=== PATIENT | female | born 1950 | race Caucasian/White ===

== ENCOUNTER 2016-05-19 10:07 | Outpatient (CLI) | payer OTHER | END 2016-05-19 10:08 | disposition home or self-care (01) | DX: Z12.31 Encounter for screening mammogram for malignant neoplasm of breast (principal) ==

== ENCOUNTER 2016-05-28 10:54 | Outpatient (CLI) | payer OTHER | END 2016-05-28 10:55 | disposition home or self-care (01) | DX: E11.65 Type 2 diabetes mellitus with hyperglycemia (principal); F33.1 Major depressive disorder, recurrent, moderate ==

== ENCOUNTER 2016-09-11 13:33 | Outpatient (CLI) | payer OTHER ==
[2016-09-11 17:45] LABS: ALBUMIN/GLOBULIN RATIO 1.4 (1.0-2.2); BILIRUBIN,TOTAL 0.5 mg/dL (0.2-1.0); CALCIUM 10.3 mg/dL (8.5-10.3); POTASSIUM 3.7 mmol/L (3.5-5.0)
[2016-09-11 18:15] LABS: HEMOGLOBIN A1C 0.93 g/dL
== END 2016-09-11 13:34 | disposition home or self-care (01) ==
LOC: LAB.F 13:33
PROVIDERS: ATTEND Nurse Practitioner Family
DX: E11.65 Type 2 diabetes mellitus with hyperglycemia (principal); F33.9 Major depressive disorder, recurrent, unspecified; Z79.899 Other long term (current) drug therapy
CPT/HCPCS: 36415; 80053; 83036; 84443

== ENCOUNTER 2017-08-23 08:08 | Outpatient (CLI) | payer MEDICARE, OTHER ==
[2017-08-23 11:32] LABS: BASOPHILS # (AUTO) 0.1 10^3/uL (0.0-0.1); BASOPHILS % (AUTO) 0.8 %; EOSINOPHILS # (AUTO) 0.2 10^3/uL (0.0-0.7); EOSINOPHILS % (AUTO) 3.1 %; HGB - HEMOGLOBIN 11.5 g/dL (12.0-16.0); LYMPHOCYTES % (AUTO) 28.8 %; MEAN CORPUSCULAR HEMOGLOBIN 30.2 pg (27.0-31.0); MEAN CORPUSCULAR HGB CONC 34.6 g/dL (32.0-36.0); MEAN CORPUSCULAR VOLUME 87.4 fL (81.0-99.0); MEAN PLATELET VOLUME 6.8 fL (7.9-10.8); MONOCYTES # (AUTO) 0.7 10^3/uL (0.0-1.0); MONOCYTES % (AUTO) 9.6 %; NEUTROPHILS % (AUTO) 57.7 %; PLT - PLATELET COUNT 487 10^3/uL (130-450); RED BLOOD COUNT 3.81 10^6/uL (4.20-5.40); RED CELL DISTRIBUTION WIDTH 14.2 % (12.0-15.0); WHITE BLOOD COUNT 6.9 x10^3/uL (4.8-10.8)
== END 2017-08-23 08:09 | disposition home or self-care (01) ==
LOC: LAB.F 08:08
PROVIDERS: ATTEND Nurse Practitioner Family
DX: F33.1 Major depressive disorder, recurrent, moderate (principal)
CPT/HCPCS: 36415; 85025

== ENCOUNTER 2017-08-30 05:56 | Outpatient (CLI) | payer MEDICARE, OTHER ==
[2017-08-30 06:39] LABS: CREATININE,URINE 80.7 mg/dL; MICROALBUM/CREATININE RATIO,UR 6.2 ug/mg (<30.0); MICROALBUMIN,URINE 0.5 mg/dL (0-300.0)
[2017-08-30 06:42] LABS: HB2 TOTAL 12.9 g/dL; HEMOGLOBIN A1C 0.72 g/dL; HEMOGLOBIN A1C % 7.3 % (4.6-6.2)
[2017-08-30 06:43] LABS: CHOL/HDL RATIO 3.8 (<4.4); CHOLESTEROL 184 mg/dL; HDL CHOLESTEROL 49 mg/dL; LDL CHOLESTEROL,CALCULATED 107 mg/dL; LDL/HDL RATIO 2.2 (<4.4); VLDL CHOLESTEROL 28 mg/dL
== END 2017-08-30 05:57 | disposition home or self-care (01) ==
LOC: LAB 05:56
PROVIDERS: ATTEND Nurse Practitioner Family
DX: E11.65 Type 2 diabetes mellitus with hyperglycemia (principal)
CPT/HCPCS: 36415; 80061; 82043; 82570; 83036; 83721

== ENCOUNTER 2017-09-09 15:32 | Outpatient (CLI) | payer MEDICARE, OTHER ==
[2017-09-09 16:00] LABS: BASOPHILS # (AUTO) 0.1 10^3/uL (0.0-0.1); BASOPHILS % (AUTO) 0.8 %; EOSINOPHILS # (AUTO) 0.2 10^3/uL (0.0-0.7); EOSINOPHILS % (AUTO) 2.2 %; HGB - HEMOGLOBIN 11.5 g/dL (12.0-16.0); LYMPHOCYTES # (AUTO) 2.2 10^3/uL (1.5-3.5); LYMPHOCYTES % (AUTO) 29.5 %; MEAN CORPUSCULAR HEMOGLOBIN 29.9 pg (27.0-31.0); MEAN CORPUSCULAR HGB CONC 33.5 g/dL (32.0-36.0); MEAN CORPUSCULAR VOLUME 89.2 fL (81.0-99.0); MEAN PLATELET VOLUME 6.4 fL (7.9-10.8); MONOCYTES # (AUTO) 0.6 10^3/uL (0.0-1.0); MONOCYTES % (AUTO) 8.4 %; NEUTROPHILS # (AUTO) 4.5 10^3/uL (1.5-6.6); NEUTROPHILS % (AUTO) 59.1 %; PLT - PLATELET COUNT 627 10^3/uL (130-450); RED BLOOD COUNT 3.86 10^6/uL (4.20-5.40); RED CELL DISTRIBUTION WIDTH 14.5 % (12.0-15.0); WHITE BLOOD COUNT 7.5 x10^3/uL (4.8-10.8)
[2017-09-09 16:16] LABS: ALBUMIN 4.1 g/dL (3.2-5.5); ALBUMIN/GLOBULIN RATIO 1.1 (1.0-2.2); BILIRUBIN,TOTAL 0.4 mg/dL (0.2-1.0); CALCIUM 9.5 mg/dL (8.5-10.3); CREATININE 1.1 mg/dL (0.4-1.0); TOTAL PROTEIN 7.8 g/dL (6.7-8.2)
[2017-09-09 16:33] LABS: FERRITIN 40.3 ng/mL (11.0-306.8)
[2017-09-09 16:36] LABS: FOLATE 22.17 ng/mL (5.90 - >24.8)
== END 2017-09-09 15:33 | disposition home or self-care (01) ==
LOC: LAB 15:32
PROVIDERS: ATTEND Nurse Practitioner Family
DX: E11.9 Type 2 diabetes mellitus without complications (principal)
CPT/HCPCS: 36415; 80053; 82607; 82728; 82746; 83540; 84466; 85025

== ENCOUNTER 2017-09-21 09:00 | Outpatient (CLI) | payer MEDICARE, OTHER | END 2017-09-21 23:59 | LOC: LAB.R 09:00 | PROVIDERS: ATTEND Nurse Practitioner Family | DX: D64.9 Anemia, unspecified (principal) | CPT/HCPCS: 82270 ==

== ENCOUNTER 2017-10-01 13:32 | Outpatient (CLI) | payer MEDICARE, OTHER ==
[2017-10-01 13:47] LABS: BASOPHILS # (AUTO) 0.1 10^3/uL (0.0-0.1); BASOPHILS % (AUTO) 1.4 %; EOSINOPHILS # (AUTO) 0.2 10^3/uL (0.0-0.7); EOSINOPHILS % (AUTO) 2.4 %; HGB - HEMOGLOBIN 11.7 g/dL (12.0-16.0); LYMPHOCYTES # (AUTO) 2.2 10^3/uL (1.5-3.5); LYMPHOCYTES % (AUTO) 27.6 %; MEAN CORPUSCULAR HEMOGLOBIN 30.4 pg (27.0-31.0); MEAN CORPUSCULAR HGB CONC 34.9 g/dL (32.0-36.0); MEAN PLATELET VOLUME 6.4 fL (7.9-10.8); MONOCYTES # (AUTO) 0.7 10^3/uL (0.0-1.0); MONOCYTES % (AUTO) 8.2 %; NEUTROPHILS # (AUTO) 4.8 10^3/uL (1.5-6.6); NEUTROPHILS % (AUTO) 60.4 %; PLT - PLATELET COUNT 597 10^3/uL (130-450); RED BLOOD COUNT 3.84 10^6/uL (4.20-5.40); RED CELL DISTRIBUTION WIDTH 13.8 % (12.0-15.0)
== END 2017-10-01 13:33 | disposition home or self-care (01) ==
LOC: LAB 13:32
PROVIDERS: ATTEND Nurse Practitioner Family
DX: D64.9 Anemia, unspecified (principal)
CPT/HCPCS: 36415; 85025

== ENCOUNTER 2018-02-03 08:49 | Outpatient (CLI) | payer MEDICARE, OTHER ==
[2018-02-03 18:30] LABS: BASOPHILS % (AUTO) 0.6 %; EOSINOPHILS # (AUTO) 0.1 10^3/uL (0.0-0.7); EOSINOPHILS % (AUTO) 1.6 %; HGB - HEMOGLOBIN 11.8 g/dL (12.0-16.0); LYMPHOCYTES # (AUTO) 1.8 10^3/uL (1.5-3.5); LYMPHOCYTES % (AUTO) 23.7 %; MEAN CORPUSCULAR HEMOGLOBIN 29.7 pg (27.0-31.0); MEAN CORPUSCULAR HGB CONC 33.4 g/dL (32.0-36.0); MEAN PLATELET VOLUME 6.6 fL (7.9-10.8); MONOCYTES # (AUTO) 0.5 10^3/uL (0.0-1.0); MONOCYTES % (AUTO) 6.8 %; NEUTROPHILS # (AUTO) 5.2 10^3/uL (1.5-6.6); NEUTROPHILS % (AUTO) 67.3 %; PLT - PLATELET COUNT 616 10^3/uL (130-450); RED BLOOD COUNT 3.95 10^6/uL (4.20-5.40); RED CELL DISTRIBUTION WIDTH 14.2 % (12.0-15.0); WHITE BLOOD COUNT 7.7 x10^3/uL (4.8-10.8)
[2018-02-03 18:40] LABS: HB2 TOTAL 12.2 g/dL; HEMOGLOBIN A1C 0.67 g/dL; HEMOGLOBIN A1C % 7.2 % (4.6-6.2)
[2018-02-03 18:53] LABS: ALBUMIN 4.4 g/dL (3.2-5.5); ALBUMIN/GLOBULIN RATIO 1.5 (1.0-2.2); BILIRUBIN,TOTAL 0.7 mg/dL (0.2-1.0); CALCIUM 9.4 mg/dL (8.5-10.3); CREATININE 1.2 mg/dL (0.4-1.0); TOTAL PROTEIN 7.4 g/dL (6.7-8.2)
== END 2018-02-03 08:50 | disposition home or self-care (01) ==
LOC: LAB.F 08:49
PROVIDERS: ATTEND Nurse Practitioner Family
DX: D64.9 Anemia, unspecified (principal); E11.65 Type 2 diabetes mellitus with hyperglycemia
CPT/HCPCS: 36415; 80053; 82043; 83036; 85025

== ENCOUNTER 2018-02-18 08:47 | Outpatient (CLI) | payer MEDICARE, OTHER ==
[2018-02-18 17:55] LABS: BASOPHILS % (AUTO) 0.4 %; EOSINOPHILS # (AUTO) 0.1 10^3/uL (0.0-0.7); EOSINOPHILS % (AUTO) 1.6 %; HGB - HEMOGLOBIN 12.4 g/dL (12.0-16.0); LYMPHOCYTES # (AUTO) 1.9 10^3/uL (1.5-3.5); LYMPHOCYTES % (AUTO) 23.1 %; MEAN CORPUSCULAR HEMOGLOBIN 29.3 pg (27.0-31.0); MEAN CORPUSCULAR VOLUME 88.9 fL (81.0-99.0); MEAN PLATELET VOLUME 6.6 fL (7.9-10.8); MONOCYTES # (AUTO) 0.6 10^3/uL (0.0-1.0); MONOCYTES % (AUTO) 7.3 %; NEUTROPHILS # (AUTO) 5.6 10^3/uL (1.5-6.6); NEUTROPHILS % (AUTO) 67.6 %; PLT - PLATELET COUNT 620 10^3/uL (130-450); RED BLOOD COUNT 4.22 10^6/uL (4.20-5.40); RED CELL DISTRIBUTION WIDTH 14.2 % (12.0-15.0); WHITE BLOOD COUNT 8.3 x10^3/uL (4.8-10.8)
== END 2018-02-18 08:48 | disposition home or self-care (01) ==
LOC: LAB.F 08:47
PROVIDERS: ATTEND Nurse Practitioner Family
DX: E87.1 Hypo-osmolality and hyponatremia (principal); D64.9 Anemia, unspecified
CPT/HCPCS: 36415; 80048; 82043; 85025

== ENCOUNTER 2018-03-02 10:00 | Outpatient (CLI) | payer MEDICARE, OTHER ==
[2018-03-02 11:09] LABS: % IRON SATURATION 19 % (20-50); IRON 79 ug/dL (28-170); TOTAL IRON BINDING CAPACITY 409 ug/dL (250-450); TRANSFERRIN 292 mg/dL (192-382)
[2018-03-02 12:09] LABS: FREE T4 (FREE THYROXINE) 0.68 ng/dL (0.58-1.64)
[2018-03-02 12:13] LABS: TOTAL T3 0.73 ng/mL (0.87-1.78)
== END 2018-03-02 10:01 | disposition home or self-care (01) ==
LOC: LAB 10:00
PROVIDERS: ATTEND Physician Assistant Medical
DX: L65.9 Nonscarring hair loss, unspecified (principal)
CPT/HCPCS: 36415; 83540; 84439; 84466; 84480; 86376

== ENCOUNTER 2018-03-19 14:20 | Outpatient (CLI) | payer MEDICARE, OTHER ==
--- NOTE | 2018-03-21 12:59 | Ultrasound Report ---
Reason: RENAL INSUFFICIENCY Procedure Date: 03/19/2018 Accession Number: [id number] / [id number] Procedure: US - Retroperitoneal CPT Code: FULL RESULT: EXAM: RENAL ULTRASOUND EXAM DATE: 03/19/2018 02:42 PM. CLINICAL HISTORY: Renal insufficiency. COMPARISON: None. TECHNIQUE: Real-time scanning was performed with static images obtained. FINDINGS: Echogenicity of the renal cortices is mildly increased bilaterally. Right Kidney: 9.2 cm. Normal echotexture with no stones, contour-deforming masses, or hydronephrosis. Left Kidney: 10.4 cm. Normal echotexture with no stones, contour-deforming masses, or hydronephrosis. Bladder: Bilateral jets seen. The prevoid bladder volume was 149 cc. The postvoid bladder volume was 3 cc. Other: None. IMPRESSION: No obstruction with mildly echogenic cortices in keeping with medical renal disease. RADIA
== END 2018-03-19 14:21 | disposition home or self-care (01) ==
LOC: DI 14:20
PROVIDERS: ATTEND Nurse Practitioner Family
DX: N28.9 Disorder of kidney and ureter, unspecified (principal)
CPT/HCPCS: 76770

== ENCOUNTER 2018-04-04 10:41 | Outpatient (CLI) | payer MEDICARE, OTHER ==
[2018-04-04 11:16] LABS: BASOPHILS % (AUTO) 0.7 %; EOSINOPHILS # (AUTO) 0.3 10^3/uL (0.0-0.7); EOSINOPHILS % (AUTO) 4.8 %; HGB - HEMOGLOBIN 11.9 g/dL (12.0-16.0); LYMPHOCYTES # (AUTO) 1.9 10^3/uL (1.5-3.5); LYMPHOCYTES % (AUTO) 27.9 %; MEAN CORPUSCULAR HEMOGLOBIN 29.2 pg (27.0-31.0); MEAN CORPUSCULAR HGB CONC 34.6 g/dL (32.0-36.0); MEAN CORPUSCULAR VOLUME 84.5 fL (81.0-99.0); MEAN PLATELET VOLUME 5.7 fL (7.9-10.8); MONOCYTES # (AUTO) 0.6 10^3/uL (0.0-1.0); MONOCYTES % (AUTO) 8.5 %; NEUTROPHILS # (AUTO) 3.9 10^3/uL (1.5-6.6); NEUTROPHILS % (AUTO) 58.1 %; PLT - PLATELET COUNT 602 10^3/uL (130-450); RED BLOOD COUNT 4.08 10^6/uL (4.20-5.40); RED CELL DISTRIBUTION WIDTH 14.4 % (12.0-15.0); WHITE BLOOD COUNT 6.7 x10^3/uL (4.8-10.8)
[2018-04-04 11:25] LABS: CALCIUM 9.6 mg/dL (8.5-10.3); CREATININE 0.9 mg/dL (0.4-1.0)
[2018-04-04 11:48] LABS: CREATININE,URINE < 13.0 mg/dL
[2018-04-04 12:09] LABS: TOTAL PROTEIN,URINE TIMED < 6 mg/dL
== END 2018-04-04 10:42 | disposition home or self-care (01) ==
LOC: LAB 10:41
PROVIDERS: ATTEND Internal Medicine Nephrology
DX: N05.9 Unspecified nephritic syndrome with unspecified morphologic changes (principal); R80.9 Proteinuria, unspecified; D64.9 Anemia, unspecified
CPT/HCPCS: 36415; 80048; 82570; 84156; 85025

== ENCOUNTER 2018-05-09 10:01 | Outpatient (CLI) | payer MEDICARE, OTHER ==
[2018-05-09 10:37] LABS: CALCIUM 9.5 mg/dL (8.5-10.3); CREATININE 0.8 mg/dL (0.4-1.0)
== END 2018-05-09 10:02 | disposition home or self-care (01) ==
LOC: LAB 10:01
PROVIDERS: ATTEND Internal Medicine Nephrology
DX: N05.9 Unspecified nephritic syndrome with unspecified morphologic changes (principal)
CPT/HCPCS: 80048

== ENCOUNTER 2018-11-25 11:15 | Outpatient (CLI) | payer MEDICARE, OTHER | END 2018-11-25 11:16 | disposition home or self-care (01) | LOC: NS 11:15 | PROVIDERS: ATTEND Physician Assistant | DX: Z71.3 Dietary counseling and surveillance (principal); E11.9 Type 2 diabetes mellitus without complications | CPT/HCPCS: 97802 ==

== ENCOUNTER 2019-02-24 08:00 | Outpatient (CLI) | payer MEDICARE, OTHER ==
[2019-02-24 14:25] LABS: CREATININE,URINE 29.7 mg/dL; MICROALBUM/CREATININE RATIO,UR 10.1 ug/mg (<30.0); MICROALBUMIN,URINE 0.3 mg/dL (0-300.0)
[2019-02-24 15:44] LABS: HEMOGLOBIN A1C 0.69 g/dL; HEMOGLOBIN A1C % 7.4 % (4.6-6.2)
== END 2019-02-24 23:59 | disposition home or self-care (01) ==
LOC: LAB.WCP 08:00
PROVIDERS: ATTEND Physician Assistant
DX: E11.9 Type 2 diabetes mellitus without complications (principal)
CPT/HCPCS: 36415; 82043; 82570; 83036

== ENCOUNTER 2019-12-19 07:33 | Outpatient (CLI) | payer MEDICARE, OTHER ==
[2019-12-19 08:09] LABS: ALBUMIN 4.4 g/dL (3.2-5.5); ALBUMIN/GLOBULIN RATIO 1.3 (1.0-2.2); ALKALINE PHOSPHATASE 50 IU/L (42-121); ALT ALANINE AMINOTRANSFERASE 40 IU/L (10-60); AST ASPARTATE AMINOTRANSFERASE 28 IU/L (10-42); BILIRUBIN,TOTAL 0.8 mg/dL (0.2-1.0); BUN - BLOOD UREA NITROGEN 21 mg/dL (6-20); CALCIUM 9.8 mg/dL (8.5-10.3); CARBON DIOXIDE - CO2 24 mmol/L (21-32); CHLORIDE 101 mmol/L (101-111); CHOL/HDL RATIO 3.4 (<4.4); CHOLESTEROL 185 mg/dL; CREATININE 1.1 mg/dL (0.4-1.0); GLUCOSE 138 mg/dL (70-100); HDL CHOLESTEROL 55 mg/dL; LDL CHOLESTEROL,CALCULATED 109 mg/dL; SODIUM 138 mmol/L (135-145); TOTAL PROTEIN 7.9 g/dL (6.7-8.2); VLDL CHOLESTEROL 21 mg/dL
[2019-12-19 10:44] LABS: HEMOGLOBIN A1c% 8.3 % (4.27-6.07)
== END 2019-12-19 07:34 | disposition home or self-care (01) ==
LOC: LAB 07:33
PROVIDERS: ATTEND Physician Assistant
DX: E11.9 Type 2 diabetes mellitus without complications (principal)
CPT/HCPCS: 36415; 80053; 80061; 83036; 83721

== ENCOUNTER 2020-04-02 11:03 | Outpatient (CLI) | payer MEDICARE, OTHER ==
[2020-04-02 19:09] LABS: CREATININE,URINE 66.6 mg/dL
[2020-04-02 20:48] LABS: HEMOGLOBIN A1c% 6.4 % (4.27-6.07)
== END 2020-04-02 23:59 | disposition home or self-care (01) ==
LOC: LAB.WCP 11:03
PROVIDERS: ATTEND Physician Assistant
DX: E11.9 Type 2 diabetes mellitus without complications (principal)
CPT/HCPCS: 36415; 82043; 82570; 83036

== ENCOUNTER 2020-11-22 08:51 | Outpatient (CLI) | payer MEDICARE, OTHER ==
[2020-11-22 12:46] LABS: BASOPHILS % (AUTO) 0.6 %; EOSINOPHILS # (AUTO) 0.1 10^3/uL (0.0-0.7); EOSINOPHILS % (AUTO) 1.8 %; HCT - HEMATOCRIT 40.9 % (37.0-47.0); LYMPHOCYTES # (AUTO) 1.7 10^3/uL (1.5-3.5); LYMPHOCYTES % (AUTO) 24.6 %; MEAN CORPUSCULAR HEMOGLOBIN 29.1 pg (27.0-31.0); MEAN CORPUSCULAR HGB CONC 31.8 g/dL (32.0-36.0); MEAN CORPUSCULAR VOLUME 91.7 fL (81.0-99.0); MEAN PLATELET VOLUME 8.3 fL (7.9-10.8); MONOCYTES # (AUTO) 0.4 10^3/uL (0.0-1.0); MONOCYTES % (AUTO) 6.5 %; NEUTROPHILS # (AUTO) 4.5 10^3/uL (1.5-6.6); NEUTROPHILS % (AUTO) 66.2 %; PLT - PLATELET COUNT 556 10^3/uL (130-450); RED BLOOD COUNT 4.46 10^6/uL (4.20-5.40); RED CELL DISTRIBUTION WIDTH 13.5 % (12.0-15.0); WHITE BLOOD COUNT 6.7 x10^3/uL (4.8-10.8)
[2020-11-22 13:28] LABS: ALBUMIN 4.5 g/dL (3.2-5.5); ALBUMIN/GLOBULIN RATIO 1.5 (1.0-2.2); ALKALINE PHOSPHATASE 53 IU/L (42-121); ALT ALANINE AMINOTRANSFERASE 17 IU/L (10-60); AST ASPARTATE AMINOTRANSFERASE 17 IU/L (10-42); BILIRUBIN,TOTAL 0.7 mg/dL (0.2-1.0); BUN - BLOOD UREA NITROGEN 17 mg/dL (6-20); CALCIUM 9.8 mg/dL (8.5-10.3); CARBON DIOXIDE - CO2 27 mmol/L (21-32); CHLORIDE 102 mmol/L (101-111); CHOL/HDL RATIO 3.3 (<4.4); CHOLESTEROL 187 mg/dL; CREATININE 1.1 mg/dL (0.4-1.0); GFR - MDRD 49 (>89); GLUCOSE 117 mg/dL (70-100); HDL CHOLESTEROL 56 mg/dL; LDL CHOLESTEROL,CALCULATED 110 mg/dL; POTASSIUM 4.6 mmol/L (3.5-5.0); SODIUM 138 mmol/L (135-145); TOTAL PROTEIN 7.5 g/dL (6.7-8.2); TRIGLYCERIDES 107 mg/dL; VLDL CHOLESTEROL 21 mg/dL
[2020-11-22 13:56] LABS: ESTIMATED AVERAGE GLUCOSE 143 mg/dL (70-100); HEMOGLOBIN A1c% 6.6 % (4.27-6.07)
== END 2020-11-22 23:59 | disposition home or self-care (01) ==
LOC: LAB.WCP 08:51
PROVIDERS: ATTEND Family Medicine
DX: E11.9 Type 2 diabetes mellitus without complications (principal); D64.9 Anemia, unspecified
CPT/HCPCS: 36415; 80053; 80061; 82728; 83036; 83721; 85025

== ENCOUNTER 2021-05-19 09:30 | Outpatient (CLI) | payer MEDICARE, OTHER ==
--- NOTE | 2021-05-20 11:46 | Mammography Report ---
BILATERAL DIGITAL SCREENING MAMMOGRAM 3D/2D: 05/19/2021 CLINICAL: Routine screening. Comparison is made to exams dated: 05/19/2016 mammogram and 04/25/2014 mammogram - [facility]. There are scattered fibroglandular elements in both breasts. There is a biopsy clip in the left breast. No significant masses, calcifications, or other findings are seen in either breast. There has been no significant interval change. IMPRESSION: NEGATIVE There is no mammographic evidence of malignancy. A 1 year screening mammogram is recommended. This exam was interpreted at Station ID: [id number]. NOTE: For mammograms, a report in lay terms will be sent to the patient. Approximately 15% of breast malignancies will not be visualized mammographically. In the management of a palpable breast mass, a negative mammogram must not discourage biopsy of a clinically suspicious lesion. Electronically Signed By: Dena ulloa/davidrad:05/19/2021 10:06:44 ACR BI-RADS Category 1: Negative 3341F PARENCHYMAL PATTERN: (A) - The breast(s) demonstrate(s) scattered fibroglandular densities. BI-RADS CATEGORY: (1) - 1 RECOMMENDATION: (ANNUAL) - Recommend routine annual screening mammography. [id number] 1 year screening LATERALITY: (B)
== END 2021-05-19 09:31 | disposition home or self-care (01) ==
LOC: DI.N 09:30
DX: Z12.31 Encounter for screening mammogram for malignant neoplasm of breast (principal)

== ENCOUNTER 2021-09-29 07:14 | Outpatient (CLI) | payer MEDICARE, OTHER ==
[2021-09-29 07:27] LABS: BASOPHILS % (AUTO) 0.6 %; EOSINOPHILS # (AUTO) 0.2 10^3/uL (0.0-0.7); EOSINOPHILS % (AUTO) 3.2 %; HCT - HEMATOCRIT 38.3 % (37.0-47.0); HGB - HEMOGLOBIN 12.8 g/dL (12.0-16.0); LYMPHOCYTES # (AUTO) 1.7 10^3/uL (1.5-3.5); LYMPHOCYTES % (AUTO) 27.9 %; MEAN CORPUSCULAR HGB CONC 33.4 g/dL (32.0-36.0); MEAN CORPUSCULAR VOLUME 86.8 fL (81.0-99.0); MEAN PLATELET VOLUME 7.8 fL (7.9-10.8); MONOCYTES # (AUTO) 0.5 10^3/uL (0.0-1.0); MONOCYTES % (AUTO) 8.3 %; NEUTROPHILS # (AUTO) 3.7 10^3/uL (1.5-6.6); NEUTROPHILS % (AUTO) 59.8 %; PLT - PLATELET COUNT 423 10^3/uL (130-450); RED BLOOD COUNT 4.41 10^6/uL (4.20-5.40); RED CELL DISTRIBUTION WIDTH 13.7 % (12.0-15.0); WHITE BLOOD COUNT 6.2 x10^3/uL (4.8-10.8)
[2021-09-29 07:47] LABS: CREATININE,URINE 64.3 mg/dL; MICROALBUM/CREATININE RATIO,UR 24.9 ug/mg (<30.0); MICROALBUMIN,URINE 1.6 mg/dL (0-300.0)
[2021-09-29 07:48] LABS: ALBUMIN 4.5 g/dL (3.2-5.5); ALBUMIN/GLOBULIN RATIO 1.6 (1.0-2.2); ALKALINE PHOSPHATASE 55 IU/L (42-121); ALT ALANINE AMINOTRANSFERASE 19 IU/L (10-60); AST ASPARTATE AMINOTRANSFERASE 18 IU/L (10-42); BILIRUBIN,TOTAL 0.5 mg/dL (0.2-1.0); BUN - BLOOD UREA NITROGEN 17 mg/dL (6-20); CALCIUM 9.7 mg/dL (8.5-10.3); CARBON DIOXIDE - CO2 27 mmol/L (21-32); CHLORIDE 100 mmol/L (101-111); CHOL/HDL RATIO 4.9 (<4.4); CHOLESTEROL 284 mg/dL; CREATININE 0.9 mg/dL (0.4-1.0); GFR - MDRD 62 (>89); GLUCOSE 148 mg/dL (70-100); HDL CHOLESTEROL 58 mg/dL; LDL CHOLESTEROL,CALCULATED 164 mg/dL; LDL/HDL RATIO 2.8 (<4.4); POTASSIUM 4.5 mmol/L (3.5-5.0); SODIUM 135 mmol/L (135-145); TOTAL PROTEIN 7.4 g/dL (6.7-8.2); TRIGLYCERIDES 309 mg/dL; VLDL CHOLESTEROL 62 mg/dL
[2021-09-29 12:23] LABS: ESTIMATED AVERAGE GLUCOSE 163 mg/dL (70-100); HEMOGLOBIN A1c% 7.3 % (4.27-6.07)
== END 2021-09-29 07:15 | disposition home or self-care (01) ==
LOC: LAB 07:14
PROVIDERS: ATTEND Family Medicine
DX: E11.9 Type 2 diabetes mellitus without complications (principal)
CPT/HCPCS: 36415; 80053; 80061; 82043; 82570; 83036; 83721; 85025

== ENCOUNTER 2022-04-17 08:11 | Outpatient (CLI) | payer MEDICARE, OTHER ==
[2022-04-17 10:08] LABS: ESTIMATED AVERAGE GLUCOSE 160 mg/dL (70-100); HEMOGLOBIN A1c% 7.2 % (4.27-6.07)
== END 2022-04-17 08:12 | disposition home or self-care (01) ==
LOC: LAB 08:11
PROVIDERS: ATTEND Physician Assistant
DX: E11.9 Type 2 diabetes mellitus without complications (principal)
CPT/HCPCS: 36415; 83036

== ENCOUNTER 2022-07-14 07:27 | Outpatient (CLI) | payer MEDICARE, OTHER ==
[2022-07-14 11:56] LABS: ESTIMATED AVERAGE GLUCOSE 157 mg/dL (70-100); HEMOGLOBIN A1c% 7.1 % (4.27-6.07)
[2022-07-15 07:10] LABS: HSV 1 IGG TYPE SPEC <0.91 index (0.00-0.90); VARICELLA-ZOSTER AB IGG 2743 index (Immune >165)
[2022-07-15 14:09] LABS: VARICELLA-ZOSTER AB IGM <0.91 index (0.00-0.90)
== END 2022-07-14 07:28 | disposition home or self-care (01) ==
LOC: LAB 07:27
PROVIDERS: ATTEND Physician Assistant
DX: E11.9 Type 2 diabetes mellitus without complications (principal); B02.9 Zoster without complications
CPT/HCPCS: 36415; 83036; 86695; 86696; 86787

== ENCOUNTER 2022-11-04 07:41 | Outpatient (CLI) | payer MEDICARE, OTHER ==
[2022-11-04 08:01] LABS: BASOPHILS % (AUTO) 0.6 %; EOSINOPHILS # (AUTO) 0.1 10^3/uL (0.0-0.7); EOSINOPHILS % (AUTO) 1.8 %; HCT - HEMATOCRIT 38.4 % (37.0-47.0); HGB - HEMOGLOBIN 12.4 g/dL (12.0-16.0); LYMPHOCYTES # (AUTO) 1.7 10^3/uL (1.5-3.5); LYMPHOCYTES % (AUTO) 26.9 %; MEAN CORPUSCULAR HEMOGLOBIN 28.6 pg (27.0-31.0); MEAN CORPUSCULAR HGB CONC 32.3 g/dL (32.0-36.0); MEAN CORPUSCULAR VOLUME 88.5 fL (81.0-99.0); MEAN PLATELET VOLUME 7.6 fL (7.9-10.8); MONOCYTES # (AUTO) 0.4 10^3/uL (0.0-1.0); MONOCYTES % (AUTO) 6.8 %; NEUTROPHILS # (AUTO) 3.9 10^3/uL (1.5-6.6); NEUTROPHILS % (AUTO) 63.6 %; PLT - PLATELET COUNT 426 10^3/uL (130-450); RED BLOOD COUNT 4.34 10^6/uL (4.20-5.40); RED CELL DISTRIBUTION WIDTH 13.7 % (12.0-15.0); WHITE BLOOD COUNT 6.2 x10^3/uL (4.8-10.8)
[2022-11-04 08:13] LABS: CREATININE,URINE 58.5 mg/dL
[2022-11-04 08:15] LABS: MICROALBUMIN,URINE < 0.7 mg/dL
[2022-11-04 08:16] LABS: ALBUMIN 4.4 g/dL (3.2-5.5); ALBUMIN/GLOBULIN RATIO 1.7 (1.0-2.2); ALKALINE PHOSPHATASE 49 IU/L (42-121); ALT ALANINE AMINOTRANSFERASE 12 IU/L (10-60); AST ASPARTATE AMINOTRANSFERASE 13 IU/L (10-42); BILIRUBIN,TOTAL 0.4 mg/dL (0.2-1.0); BUN - BLOOD UREA NITROGEN 14 mg/dL (6-20); CALCIUM 9.8 mg/dL (8.5-10.3); CARBON DIOXIDE - CO2 30 mmol/L (21-32); CHLORIDE 101 mmol/L (101-111); CHOL/HDL RATIO 4.6 (<4.4); CHOLESTEROL 251 mg/dL; GFR - MDRD 55 (>89); GLUCOSE 122 mg/dL (74-104); HDL CHOLESTEROL 55 mg/dL; LDL CHOLESTEROL,CALCULATED 154 mg/dL; LDL/HDL RATIO 2.8 (<4.4); POTASSIUM 4.8 mmol/L (3.5-4.5); SODIUM 136 mmol/L (135-145); TRIGLYCERIDES 210 mg/dL (48-352); VLDL CHOLESTEROL 42 mg/dL
[2022-11-04 14:13] LABS: ESTIMATED AVERAGE GLUCOSE 137 mg/dL (70-100); HEMOGLOBIN A1c% 6.4 % (4.27-6.07)
== END 2022-11-04 07:42 | disposition home or self-care (01) ==
LOC: LAB 07:41
PROVIDERS: ATTEND Physician Assistant
DX: E11.9 Type 2 diabetes mellitus without complications (principal)
CPT/HCPCS: 36415; 80053; 80061; 82043; 82570; 83036; 83721; 85025

== ENCOUNTER 2023-05-20 09:17 | Outpatient (CLI) | payer MEDICARE ==
--- NOTE | 2023-05-21 09:45 | Mammography Report ---
BILATERAL DIGITAL SCREENING MAMMOGRAM 3D/2D WITH EXAGGERATED CC: 05/20/2023 CLINICAL: Routine screening. Comparison is made to exams dated: 05/19/2021 mammogram, 05/19/2016 mammogram, and 04/25/2014 mammogram - [facility]. There are scattered areas of fibroglandular density in both breasts (category b / 25%-50% glandular t issue). There is a biopsy clip in the left breast. No significant masses, calcifications, or other findings are seen in either breast. There has been no significant interval change. IMPRESSION: NEGATIVE There is no mammographic evidence of malignancy. A 1 year screening mammogram is recommended. Based on the Tyrer Cuzick model (a risk assessment model) the patient's lifetime risk is 3.8% and her 10 year risk is 2.6%. According to the ACR, ACS, and NCCN guidelines, an annual breast MRI exam kelsey g with mammogram is recommended if the patient's lifetime risk is 20% or greater. This exam was interpreted at Station ID: [id number]. NOTE: For mammograms, a report in lay terms will be sent to the patient. Approximately 15% of breast malignancies will not be visualized mammographically. In the management of a palpable breast mass, a negative mammogram must not discourage biopsy of a clinically suspicious lesion. Electronically Signed By: Jerry allen/starr:05/20/2023 11:38:43 letter sent: No_Letter ACR BI-RADS Category 1: Negative 3341F PARENCHYMAL PATTERN: (A) - The breast(s) demonstrate(s) scattered fibroglandular densities. BI-RADS CATEGORY: (1) - 1 Mammogram [id number] 1 year screening LATERALITY: (B)
== END 2023-05-20 09:18 | disposition home or self-care (01) ==
LOC: DI 09:17
DX: Z12.31 Encounter for screening mammogram for malignant neoplasm of breast (principal); R92.323 Mammographic fibroglandular density, bilateral breasts

== ENCOUNTER 2023-06-07 08:23 | Outpatient (CLI) | payer MEDICARE ==
[2023-06-07 08:34] LABS: BASOPHILS # (AUTO) 0.1 10^3/uL (0.0-0.1); BASOPHILS % (AUTO) 0.8 %; EOSINOPHILS # (AUTO) 0.2 10^3/uL (0.0-0.7); EOSINOPHILS % (AUTO) 2.9 %; HCT - HEMATOCRIT 41.5 % (37.0-47.0); HGB - HEMOGLOBIN 13.2 g/dL (12.0-16.0); LYMPHOCYTES # (AUTO) 1.5 10^3/uL (1.5-3.5); LYMPHOCYTES % (AUTO) 21.5 %; MEAN CORPUSCULAR HEMOGLOBIN 28.2 pg (27.0-31.0); MEAN CORPUSCULAR HGB CONC 31.8 g/dL (32.0-36.0); MEAN CORPUSCULAR VOLUME 88.7 fL (81.0-99.0); MEAN PLATELET VOLUME 7.9 fL (7.9-10.8); MONOCYTES # (AUTO) 0.5 10^3/uL (0.0-1.0); MONOCYTES % (AUTO) 7.4 %; NEUTROPHILS # (AUTO) 4.8 10^3/uL (1.5-6.6); PLT - PLATELET COUNT 557 10^3/uL (130-450); RED BLOOD COUNT 4.68 10^6/uL (4.20-5.40); RED CELL DISTRIBUTION WIDTH 14.1 % (12.0-15.0); WHITE BLOOD COUNT 7.2 x10^3/uL (4.8-10.8)
[2023-06-07 08:47] LABS: ALBUMIN 4.6 g/dL (3.2-5.5); ALBUMIN/GLOBULIN RATIO 1.8 (1.0-2.2); ALKALINE PHOSPHATASE 63 IU/L (42-121); ALT ALANINE AMINOTRANSFERASE 17 IU/L (10-60); AST ASPARTATE AMINOTRANSFERASE 14 IU/L (10-42); BILIRUBIN,TOTAL 0.4 mg/dL (0.2-1.0); BUN - BLOOD UREA NITROGEN 20 mg/dL (6-20); CARBON DIOXIDE - CO2 31 mmol/L (21-32); CHLORIDE 101 mmol/L (101-111); CHOLESTEROL 218 mg/dL; CREATININE 1.1 mg/dL (0.6-1.3); GFR - MDRD 49 (>89); GLUCOSE 145 mg/dL (74-104); HDL CHOLESTEROL 54 mg/dL; LDL CHOLESTEROL,CALCULATED 119 mg/dL; LDL/HDL RATIO 2.2 (<4.4); POTASSIUM 4.4 mmol/L (3.5-4.5); SODIUM 137 mmol/L (135-145); TOTAL PROTEIN 7.2 g/dL (6.4-8.9); TRIGLYCERIDES 225 mg/dL (48-352); VLDL CHOLESTEROL 45 mg/dL
[2023-06-07 11:27] LABS: ESTIMATED AVERAGE GLUCOSE 154 mg/dL (70-100)
== END 2023-06-07 08:24 | disposition home or self-care (01) ==
LOC: LAB 08:23
PROVIDERS: ATTEND Physician Assistant
DX: E11.9 Type 2 diabetes mellitus without complications (principal); E78.5 Hyperlipidemia, unspecified
CPT/HCPCS: 36415; 80053; 80061; 83036; 83721; 85025

== ENCOUNTER 2023-12-01 08:20 | Outpatient (CLI) | payer MEDICARE ==
[2023-12-01 08:42] LABS: BASOPHILS # (AUTO) 0.1 10^3/uL (0.0-0.1); BASOPHILS % (AUTO) 0.7 %; EOSINOPHILS # (AUTO) 0.1 10^3/uL (0.0-0.7); EOSINOPHILS % (AUTO) 1.9 %; HCT - HEMATOCRIT 41.3 % (37.0-47.0); HGB - HEMOGLOBIN 13.1 g/dL (12.0-16.0); LYMPHOCYTES # (AUTO) 1.6 10^3/uL (1.5-3.5); LYMPHOCYTES % (AUTO) 21.6 %; MEAN CORPUSCULAR HEMOGLOBIN 28.4 pg (27.0-31.0); MEAN CORPUSCULAR HGB CONC 31.7 g/dL (32.0-36.0); MEAN CORPUSCULAR VOLUME 89.6 fL (81.0-99.0); MEAN PLATELET VOLUME 7.7 fL (7.9-10.8); MONOCYTES # (AUTO) 0.5 10^3/uL (0.0-1.0); NEUTROPHILS # (AUTO) 5.1 10^3/uL (1.5-6.6); NEUTROPHILS % (AUTO) 68.4 %; PLT - PLATELET COUNT 502 10^3/uL (130-450); RED BLOOD COUNT 4.61 10^6/uL (4.20-5.40); RED CELL DISTRIBUTION WIDTH 14.5 % (12.0-15.0); WHITE BLOOD COUNT 7.4 x10^3/uL (4.8-10.8)
[2023-12-01 08:57] LABS: CREATININE,URINE 195.7 mg/dL; MICROALBUM/CREATININE RATIO,UR 21.5 ug/mg (<30.0); MICROALBUMIN,URINE 4.2 mg/dL
[2023-12-01 09:04] LABS: ALBUMIN 4.7 g/dL (3.2-5.5); ALKALINE PHOSPHATASE 68 IU/L (42-121); ALT ALANINE AMINOTRANSFERASE 14 IU/L (10-60); AST ASPARTATE AMINOTRANSFERASE 14 IU/L (10-42); BILIRUBIN,TOTAL 0.6 mg/dL (0.2-1.0); BUN - BLOOD UREA NITROGEN 16 mg/dL (6-20); CALCIUM 9.5 mg/dL (8.5-10.3); CARBON DIOXIDE - CO2 28 mmol/L (21-32); CHLORIDE 99 mmol/L (101-111); CHOL/HDL RATIO 4.3 (<4.4); CHOLESTEROL 269 mg/dL; GFR - MDRD 55 (>89); GLUCOSE 142 mg/dL (74-104); HDL CHOLESTEROL 62 mg/dL; LDL CHOLESTEROL,CALCULATED 153 mg/dL; LDL/HDL RATIO 2.5 (<4.4); POTASSIUM 4.3 mmol/L (3.5-4.5); SODIUM 135 mmol/L (135-145); TRIGLYCERIDES 272 mg/dL; VLDL CHOLESTEROL 54 mg/dL
[2023-12-01 11:51] LABS: ESTIMATED AVERAGE GLUCOSE 160 mg/dL (70-100); HEMOGLOBIN A1c% 7.2 % (4.27-6.07)
== END 2023-12-01 08:21 | disposition home or self-care (01) ==
LOC: LAB 08:20
PROVIDERS: ATTEND Physician Assistant
DX: E11.22 Type 2 diabetes mellitus with diabetic chronic kidney disease (principal); N18.31 Chronic kidney disease, stage 3a; D75.839 Thrombocytosis, unspecified
CPT/HCPCS: 36415; 80053; 80061; 82043; 82570; 83036; 83721; 85025

== ENCOUNTER 2025-01-21 07:51 | Inpatient (IN) ==
--- NOTE | 2025-01-21 07:58 | ED Physician Documentation ---
PD HPI DYSPNEA Stated complaint Stated Complaint: SOA Chief complaint Chief Complaint: Resp History obtained from History obtained from: Patient History of Present Illness Timing - onset: How many days ago (onset 10 days ago, Jan 11, while in [place]. abrupt onset fevers, cough, fatigue, nausea/vomiting. Has less intake still. No vomiting the past week. Increasing dyspnea and fatigue. ) Timing - onset during: Light activity and Exertion Timing - details: Gradual onset (with onset of flu-like symptoms 10 days ago, with dyspnea and cough continuing. Now with green sputum for 1 day. ) Inciting event(s): URI Improved by: Rest Worsened by: Exertion and Coughing Associated symptoms: Fever, Cough (now productive green sputum the past 1-2 days. ) and Wheezing; No Palpitations, Bilateral edema or Unilateral edema Similar symptoms before: Has not had sx before Meds/Allgy Home Medications Ambulatory Orders Medication Instructions Recorded Confirmed aspirin 81 mg chewable tablet 81 mg PO DAILY 03/13/14 01/21/25 (Lukas Chewable Low Dose Aspirin) fluoxetine 40 mg capsule (Prozac) 40 mg PO DAILY 01/1201/21/25 valacyclovir 500 mg tablet See Rx Instructions .Route 01/13/24 01/21/25 .COMPLEX #180 tabs pen needle, diabetic 31 gauge x 05/30/24 09/14/24 1/4" pen needle, diabetic 31 gauge x 05/30/24 09/14/24 5/16" (BD Ultra-Fine Short Pen Needle) amlodipine 2.5 mg tablet (Norvasc) 2.5 mg PO DAILY for blood pressure 06/30/24 01/21/25 #90 tabs atorvastatin 40 mg tablet 60 mg (1.5 x 40 mg) PO QPM # 135 06/30/24 01/21/25 tabs buspirone 10 mg tablet 10 mg PO TID for anxiety #27 0 tabs 06/30/24 01/21/25 dulaglutide 4.5 mg/0.5 mL 4.5 mg (0.5 mL) subcut QWEEK #6 mL 06/30/24 01/21/25 subcutaneous pen injector ([facility]) losartan 25 mg tablet 50 mg (2 x 25 mg) PO DAILY # 180 11/24/24 01/21/25 tabs metformin 500 mg tablet 1,000 mg (2 x 500 mg) PO BID #360 01/16/25 01/21/25 tabs Allergies Allergies Allergy/AdvReac Type Severity Reaction Status Date / Time nortriptyline Allergy Severe sensitivity Verified 01/21/25 08:00 mirtazapine Allergy Intermediate Sensitivity Verified 01/21/25 08:00 trazodone Allergy Mild Sensitivity Verified 01/21/25 08:00 venlafaxine HCl * (From Allergy Mild Sensitivity Verified 01/21/25 08:00 Effexor) codeine Allergy Nausea Verified 01/21/25 08:00 PET DANDER, DOG HAIR Allergy Severe Unknown Uncoded 01/21/25 08:00 [facility] Active Problems All Active Problems (Updated 01/21/25 @ 15:54 by WANG Rodrigues) Takotsubo cardiomyopathy (Acute) Heart failure (Chronic) Rhinovirus infection (Acute) Hypoxia (Acute) Pneumonia (Acute) Electrocardiogram showing T wave abnormalities (Acute) Dehydration (Acute) Flu-like symptoms (Acute) Dyspnea (Acute) IgM kappa monoclonal gammopathy (Acute) Screening for malignant neoplasm of colon (Chronic) Allergic rhinitis (Acute) Obesity (Acute) Genital herpes (Acute) Lichen sclerosus (Acute) Major depressive disorder, recurrent, moderate (Acute) Benign essential hypertension (Acute) Type 2 diabetes mellitus (Acute) Hyperlipidemia (Acute) Chronic kidney disease, stage 3a (Acute) Generalized anxiety disorder (Acute) Thrombocytosis (Acute) Postmenopausal status (Acute) Encounter for immunization (Acute) Anemia (Acute) Surgical History Surgical History (Updated 06/30/24 @ 14:36 by Ellie Damico PA-C) S/P total hysterectomy S/P cholecystectomy S/P tonsillectomy Social History Social History (Updated 01/21/25 @ 08:02 by Jorge Shaw, RN, BSN) Smoking Status: Former smoker If you are a former smoker, when did you quit? (Date/Year): 40 years Number of Years Smoked: 3 How many cigarettes a day do you smoke? (20 cigarettes=1 Pk): 20 Second hand tobacco smoke exposure: No Do you dip or chew tobacco?: No Do you vape?: No Patient requests smoking cessation consult: No Initiate information on smoking cessation: No Living arrangement: At home Living Condition: Alone Support Person: Yes How many days per week?: 4 Level: Independent Do you feel safe in your home environment?: Yes History of physical, verbal, emotional, or financial abuse?: No ETOH Use: None Substance Use: denies use Exam Exam Vital Signs: Vital Signs x48h Temp Pulse Resp BP Pulse Ox O2 Flow Rate 01/21/25 11:29 37.6 C 88 24 139/70 H 95 2 Constitutional normal general appearance, distress noted (mild) (more from feeling anxious about illness. Unlabored breathing. ) and average body habitus HENMT oral mucous membranes abnormal (dry) and oropharynx normal Neck/C-Spine supple and no meningeal signs Lymph no lymphadenopathy noted Respiratory breath sounds equal bilaterally (but somewhat decreased tidal volume. ), normal respiratory effort, auscultation abnormal (bronchial breath sounds), wheezing noted (scattered wheezes) and rales noted (base) (mild) Cardiovascular normal heart rate noted, regular rhythm noted, no murmur and no edema Gastrointestinal abdomen soft to palpation and nontender to palpation Extremities normal to palpation, no tenderness and full ROM Neurology speech normal Psychiatry mental status grossly normal, oriented x3 and affect abnormality noted (anxious) and (tearful) Skin skin color normal Results Vitals Vitals: Vital Signs - 24 hr 01/21/25 07:56 01/21/25 08:34 01/21/25 09:14 Temperature 36.3 C L Temperature Source Temporal Artery Scan Pulse Rate 92 86 93 Respiratory Rate 20 20 20 Blood Pressure 179/85 H 174/81 H O2 Saturation 95 93 Oxygen Delivery Method O2 Source Room air Room air Room air Oxygen Flow Rate If not protocol: Oxygen Flow, liters/minute Pain Intensity 0 1 01/21/25 09:50 01/21/25 09:52 01/21/25 10:00 Temperature Temperature Source Pulse Rate Respiratory Rate Blood Pressure O2 Saturation 88 L 94 Oxygen Delivery Method Nasal Cannula O2 Source Room air Nasal cannula Oxygen Flow Rate 2 If not protocol: Oxygen Flow, liters/minute 2 Pain Intensity 01/21/25 11:00 01/21/25 11:29 Temperature 37.6 C Temperature Source Temporal Artery Scan Pulse Rate 90 88 Respiratory Rate 19 24 Blood Pressure 139/70 H 139/70 H O2 Saturation 95 95 Oxygen Delivery Method O2 Source Nasal cannula Nasal cannula Oxygen Flow Rate If not protocol: Oxygen Flow, liters/minute 2 2 Pain Intensity 0 0 Oxygen O2 Source Nasal cannula Oxygen Flow Rate 2 EKG (time done) on arrival: EKG releavant findings:: EKG personally interpreted by author of this note. Relevant findings are: Rhythm: NSR Intervals: Normal AR QRS: RBBB Ischemia: T wave inversion (significantly inverted laterally, without ST elevations. ) Compare to prior EKG: Old EKG unavailable Labs Labs: Laboratory Tests 01/21/25 01/21/25 01/21/25 08:20 08:21 09:52 WBC 16.1 H RBC 3.95 L Hgb 11.0 L Hct 34.7 L MCV 87.8 MCH 27.8 MCHC 31.7 L RDW 13.2 Plt Count 615 H MPV 8.1 Neut # (Auto) 13.8 H Lymph # (Auto) 1.1 L Hidalgo # (Auto) 1.0 Eos # (Auto) 0.1 Baso # (Auto) 0.0 Absolute Nucleated RBC 0.00 Nucleated RBC % 0.0 Sodium 134 L Potassium 3.8 Chloride 99 L Carbon Dioxide 24 Anion Gap 11.0 BUN 18 Creatinine 0.9 Estimated GFR (MDRD) 62 L Glucose 233 H Calcium 9.0 Magnesium 1.8 Total Bilirubin 0.4 AST 9 L ALT 13 Alkaline Phosphatase 94 Troponin I High Sens 31.0 H* 34.5 H* B-Natriuretic Peptide 832 H Total Protein 6.7 Albumin 3.5 Globulin 3.2 Albumin/Globulin Ratio 1.1 Lipase 53 Nasal Adenovirus (PCR) NOT DETECTED Nasal B. parapertussis DNA (PCR) NOT DETECTED Nasal Coronavir 229E PCR NOT DETECTED Nasal Coronavir HKU1 PCR NOT DETECTED Nasal Coronavir NL63 PCR NOT DETECTED Nasal Coronavir OC43 PCR NOT DETECTED Nasal Enterovir/Rhinovir PCR DETECTED A Nasal Influenza B PCR NOT DETECTED Nasal Influenza A PCR NOT DETECTED Nasal Parainfluen 1 PCR NOT DETECTED Nasal Parainfluen 2 PCR NOT DETECTED Nasal Parainfluen 3 PCR NOT DETECTED Nasal Parainfluen 4 PCR NOT DETECTED Nasal RSV (PCR) NOT DETECTED Nasal B.pertussis DNA PCR NOT DETECTED Nasal C.pneumoniae (PCR) NOT DETECTED Alexy Human Metapneumo PCR NOT DETECTED Nasal M.pneumoniae (PCR) NOT DETECTED Nasal SARS-CoV-2 (PCR) NOT DETECTED Rads (name of study) chest xray: Relevant Findings:: Final report received and EMP independent interpretation of test (Diffuse interstitial changes consistent with either pneumonitis or edema with a small right pleural effusion. Normal heart size) Interpretation: EXAM: [id number] XR/CXR1VW ([id number]) PROCEDURE: XR Chest 1V INDICATIONS: cough and dyspnea TECHNIQUE: One view of the chest was acquired. COMPARISON: No prior chest x-ray for comparison FINDINGS: Moderate bilateral diffuse peribronchial thickening with patchy alveolar opacities more than expected for expiratory result. Bronchitis, viral infection, bronchopneumonia, asthma or other process should be considered. Follow-up suggested. Mild calcifications of the aortic arch mildly prominent esther, pulmonary vascular congestion and/or hilar lymph nodes No pneumothorax, no pleural effusion. Cardiopericardial silhouette within normal limits. IMPRESSION: Moderate peribronchial thickening and patchy opacities as discussed above. Prominent esther, pulmonary vascular congestion and/or hilar lymph nodes as discussed above Follow-up suggested. If symptoms persist or worsen, CT chest could be performed. Reviewed by: Brian Natarajan MD on 01/21/2025 8:58 AM PST ECHO: Relevant Findings:: Final report received Interpretation: EXAM: [id number] ECHO/COMP ([id number]) Version: 1 Study ID: [id number] [place] [address] Adult Echocardiogram Report Name: MINISTERIO FAIR Study Date: 01/21/2025, 10: 20 AM BP: 174 / 81 mmHg Patient Location: ED HR: 87 bpm : 1950 (MM/DD/YYYY) Gender: Female Height: 62 in Age: 74 Years Weight: 128 lb BSA: 1.58 m² Reason For Study: new onset dyspnea, flu-like symptoms History: No prervious study. No cardiac history of issues. Interpretation Summary The visual left ventricular ejection fraction is estimated at 40 to 45%. The base contracts well, with hypokinesis of distal segments & apex, suggetsive of stress induced cardiomyopathy. The right ventricular systolic function is normal. No concerning cardiac valve disease is noted. PD Medical Decision Making ED course Complexity details: reviewed results (Getting chemistry panel and CBC as well as BNP and troponin based on the initial chest x-ray looking like some edema in her EKG showing flipped T waves concerning for either failure or electrolyte imbalance. Awaiting results but giving fluids and albuterol treatment.), re- evaluated patient (She is having fatigue and dyspnea, with the initial ECG I felt was concerning for possible potassium abnormality, so started with some IV fluids in setting of poor PO intake for days. CXR showing pneumonitis/pneumonia, possible edema/effusion. SO decreased fluid bolus.), considered differential (Flulike illness for 10 days with under hydration and worsening cough and sputum. Mild basilar crackles. Some scattered wheezing. Initial chest x-ray looks like either pneumonitis or pulmonary edema with a small right effusion. EKG showing significant flipped T waves laterally. No ST elevations.), d/w patient and d/w work and family life consultant (Hospitalist Dr. Arreaga, who feels pt is appropriate for our hospital, and will see pt in the ED. ) Reviewed Lab Results: Initial blood test back actually are better than I expected with regard to the chemistry panel. Creatinine 0.9 with a GFR of 61. Potassium is normal as is sodium. Her CBC showed a white count of 16,000 with a hemoglobin of 11 and hematocrit of 35. This hemoglobin is slightly lower than the most recent from September 2011 0.3. Glucose was 233 and her anion gap was normal at 11. Magnesium 1.8 potassium 3.8. Her heart indicators however showed a slightly elevated troponin of 31 and a BNP of 832. We are obtaining an echocardiogram to to help distinguish a cardiomyopathy from a viral illness versus more of a ischemic affect. In the short-term we will see if there is a abrupt rise occurring of the troponin and get a repeat 1 at 1 to 2 hours. ED course: CXR pneumonia vs. edema vs. pneumonitis. 88% on RA. Oxygen started with good response. Unable to tell degree of failure and consider viral cardiomyopathy. Able to get ECHO and this was helpful in guidance, with moderate decrease in EF of 40% but not severe. Some apex hypokinesis, but not general LV. And heart size not enlarged. No not obvious severe carditis/cardiomyopathy, and could be able to treat at our facility. Critical Care Time(min): 50 Time Includes: Direct patient care, Reassess patient, Document care and Medical consult Data interpretation: Labs, Pulse ox and CXR Procedures excluded from critical care time: EKG Discharge Plan Discharge Patient Disposition: 66 [facility] DC/Xfer Condition: Stable Clinical Impression: Pneumonia, Dyspnea, Flu-like symptoms, Dehydration, Electrocardiogram showing T wave abnormalities, Hypoxia, Rhinovirus infection, Heart failure Interventions: ED Admission Assessment Last Done: 01/21/25 11:50 Vitals documented within 30 minutes of discharge?: Yes
[2025-01-21 08:27] LABS: HCT - HEMATOCRIT 34.7 % (37.0-47.0); HGB - HEMOGLOBIN 11.0 g/dL (12.0-16.0); MEAN PLATELET VOLUME 8.1 fL (7.9-10.8); NRBC ABSOLUTE COUNT (AUTO) 0.00 x10^3/uL; NUCLEATED RED BLOOD CELLS AUTO 0.0 /100WBC; PLT - PLATELET COUNT 615 10^3/uL (130-450); RED CELL DISTRIBUTION WIDTH 13.2 % (12.0-15.0)
[2025-01-21] MEDS: SODIUM CHLORIDE 0.9% 1,000 ML IV STA ×2 (08:31→09:59)
[2025-01-21] MEDS: ALBUTEROL NEB 2.5 MG/3 ML INH STA (08:32)
[2025-01-21 08:43] LABS: ALT ALANINE AMINOTRANSFERASE 13.0 IU/L (10-60); AST ASPARTATE AMINOTRANSFERASE 9.0 IU/L (10-42); BUN - BLOOD UREA NITROGEN 18.0 mg/dL (6-20); CARBON DIOXIDE - CO2 24.0 mmol/L (21-32); CREATININE 0.9 mg/dL (0.6-1.3); GFR - MDRD 62.0 (>89)
--- NOTE | 2025-01-21 09:01 | XRAY Report ---
PROCEDURE: XR Chest 1V INDICATIONS: cough and dyspnea TECHNIQUE: One view of the chest was acquired. COMPARISON: No prior chest x-ray for comparison FINDINGS: Moderate bilateral diffuse peribronchial thickening with patchy alveolar opacities more than expected for expiratory result. Bronchitis, viral infection, bronchopneumonia, asthma or other process should be considered. Follow-up suggested. Mild calcifications of the aortic arch mildly prominent esther, pulmonary vascular congestion and/or hilar lymph nodes No pneumothorax, no pleural effusion. Cardiopericardial silhouette within normal limits. IMPRESSION: Moderate peribronchial thickening and patchy opacities as discussed above. Prominent esther, pulmonary vascular congestion and/or hilar lymph nodes as discussed above Follow-up suggested. If symptoms persist or worsen, CT chest could be performed. Reviewed by: Brian Natarajan MD on 01/21/2025 8:58 AM PST Approved by: Brian Natarajan MD on 01/21/2025 8:58 AM PST Station ID: [id number]
[2025-01-21] MEDS: LORazepam 2 MG/ML VIAL IVP STA (09:11)
[2025-01-21 09:32] LABS: B. PARAPERTUSSIS- RESP PCR PAN NOT DETECTED; B. PERTUSSIS- RESP PCR PANEL NOT DETECTED; C. PNEUMONIAE- RESP PCR PANEL NOT DETECTED; CORONAVIRUS 229E-RESP PCR NOT DETECTED; CORONAVIRUS HKU1-RESP PCR NOT DETECTED; CORONAVIRUS NL63-RESP PCR NOT DETECTED; CORONAVIRUS OC43-RESP PCR NOT DETECTED; HUMAN METAPNEUMOVIRUS NOT DETECTED; INFLUENZA A- RESP PCR PANEL NOT DETECTED; INFLUENZA B - RESP PCR PANEL NOT DETECTED; M. PNEUMONIAE- RESP PCR PANEL NOT DETECTED; PARAINFLUENZA VIRUS 1 NOT DETECTED; PARAINFLUENZA VIRUS 2 NOT DETECTED; PARAINFLUENZA VIRUS 4 NOT DETECTED; RHINOVIRUS/ENTEROVIRUS DETECTED; RSV- RESP PCR PANEL NOT DETECTED; SARS-CoV-2 -RESP PCR PANEL NOT DETECTED
[2025-01-21] MEDS: AMPICILLIN/SULBACTAM 1.5 GM in SODIUM CHLORIDE 0.9% MINIBAG 100 ML IV STA (09:57)
[2025-01-21] MEDS: CLOPIDOGREL 75 MG TABLET PO STA (10:23)
[2025-01-21] MEDS: FUROSEMIDE 20 MG/2 ML VIAL IVP STA (10:23)
[2025-01-21] MEDS: ASPIRIN CHEW 81 MG TABLET PO STA (10:23)
[2025-01-21] MEDS ORDERED: oxyCODONE 5 MG TABLET PO PRN (11:28)
[2025-01-21] MEDS ORDERED: ONDANSETRON ODT 4 MG TABLET TL PRN (11:28)
[2025-01-21] MEDS ORDERED: SODIUM CHLORIDE FLUSH 0.9% 10 ML SYRINGE IVP PRN (11:28)
[2025-01-21] MEDS ORDERED: IPRATROPIUM/ALBUTEROL 3 ML NEB INH PRN (11:28)
[2025-01-21] MEDS ORDERED: ACETAMINOPHEN 325 MG TABLET PO PRN (11:28)
--- NOTE | 2025-01-21 11:35 | ECHO Report ---
Version: 1 Study ID: [id number] [id number] Adult Echocardiogram Report Name: MINISTERIO FAIR Study Date: 01/21/2025, 10: 20 AM BP: 174 / 81 mmHg Patient Location: ED HR: 87 bpm : 1950 (MM/DD/YYYY) Gender: Female Height: 62 in Age: 74 Years Weight: 128 lb BSA: 1.58 m² Reason For Study: new onset dyspnea, flu-like symptoms History: No prervious study. No cardiac history of issues. Interpretation Summary The visual left ventricular ejection fraction is estimated at 40 to 45%. The base contracts well, with hypokinesis of distal segments & apex, suggetsive of stress induced cardiomyopathy. The right ventricular systolic function is normal. No concerning cardiac valve disease is noted. Left Ventricle: The left ventricle is normal in size. No thrombus seen in the left ventricle. The visual left ventricular ejection fraction is estimated at 40 to 45%. Biplane calculation of 38%. The base contracts well, with hypokinesis of distal segments & apex, suggetsive of stress induced cardiomyopathy. The left ventricular diastolic pattern is indeterminate. Right Ventricle: The right ventricle is normal size. The right ventricular systolic function is normal. TAPSE is consistent with normal right ventricular function. The tricuspid annular plane systolic excursion (TAPSE) measurement is 2.0 cm. Aortic Valve: The aortic valve is moderately calcified. The aortic valve is trileaflet. No hemodynamically significant valvular aortic stenosis. No aortic regurgitation is present. Mitral Valve: The mitral valve leaflets are mildly calcified. Mild mitral annular calcification is present. No evidence of mitral stenosis is seen. There is trace mitral regurgitation. Tricuspid Valve: The tricuspid valve is normal in structure and function. There is no tricuspid stenosis. Trace tricuspid regurgitation present. Pulmonic Valve: The pulmonic valve is normal in structure and function. There is no pulmonic valvular stenosis. Trace pulmonic valvular regurgitation is present. Left Atrium: The left atrial size is normal. Right Atrium: Right atrial notching from Pericardial effusion. The inferior vena cava appears normal. Atrial Septum: The interatrial septum appears normal, without evidence of shunt by 2D imaging and color Doppler. Aorta: The ascending aorta is normal in size. The transverse arch is normal in size. The sinuses of Valsalva are normal in size. Pulmonary Artery: The pulmonary artery is normal size. Pulmonary artery systolic pressure could not be estimated due to an insufficient tricuspid regurgitant jet. Inferior vena cava dynamics indicate normal right atrial pressures. Pericardium/Pleural Space: A trace pericardial effusion is present. Left Ventricle IVSd: 0.85 cm LVIDd: 4.7 cm LVPWd: 0.89 cm LVIDs: 2.9 cm EDV(MOD-sp4): 53.9 ml LVLd ap4: 7.7 cm ESV(MOD-sp4): 26.9 ml ESV(sp4-el): 45.2 ml LVLs ap4: 7.0 cm EDV(MOD-sp2): 43.7 ml ESV(MOD-sp2): 20.4 ml Right Ventricle TAPSE: 2.04 cm RV S Dm: 12.3 cm/sec Atria LA dimension: 4.4 cm LAV(MOD-sp4): 46.0 ml LAV(MOD-sp2): 44.6 ml Diastolic Function MV dec time: 0.15 sec MV E max dm: 114.3 cm/sec MV A max dm: 117.3 cm/sec Aortic Valve LVOT diam: 2.05 cm LV V1 mean P.8 mmHg LV V1 mean: 88.7 cm/sec LV V1 VTI: 26.7 cm Ao V2 VTI: 28.7 cm Ao mean P.8 mmHg Ao V2 mean: 111.6 cm/sec LV V1 max: 145.1 cm/sec LV V1 max P.4 mmHg Ao max P.7 mmHg Ao V2 max: 163.9 cm/sec Mitral Valve MV max P.5 mmHg MV V2 max: 127.5 cm/sec MV mean P.7 mmHg MV V2 mean: 92.7 cm/sec MV V2 VTI: 31.7 cm Aorta Ao root diam: 3.3 cm MMode/2D Measurements & Calculations Ao root diam: 3.3 cm BMI: 23.4 kilograms/m² BSA([facility]): 1.60 m² EDV(MOD-sp2): 43.7 ml EDV(MOD-sp4): 53.9 ml ESV(MOD-sp2): 20.4 ml ESV(MOD-sp4): 26.9 ml ESV(sp4-el): 45.2 ml IVSd: 0.85 cm LA A4C-A/L: 15.3 cm² LA dimension: 4.4 cm LA ESV-A/L: 43.5 ml LA Vol Index: 55.8 ml/m² LAV(MOD-sp2): 44.6 ml LAV(MOD-sp4): 46.0 ml LVIDd: 4.7 cm LVIDs: 2.9 cm LVLd ap4: 7.7 cm LVLs ap4: 7.0 cm LVOT diam: 2.05 cm LVPWd: 0.89 cm RA A4Cs: 12.0 cm² TAPSE: 2.04 cm Doppler Measurements & Calculations Ao max P.7 mmHg Ao mean P.8 mmHg Ao V2 max: 163.9 cm/sec Ao V2 mean: 111.6 cm/sec Ao V2 VTI: 28.7 cm Lat E/e': 12.4 LV V1 max: 145.1 cm/sec LV V1 max P.4 mmHg LV V1 mean: 88.7 cm/sec LV V1 mean P.8 mmHg LV V1 VTI: 26.7 cm Med E/e': 16.2 MV A max dm: 117.3 cm/sec MV dec time: 0.15 sec MV DVI-pr: 0.97 MV E max dm: 114.3 cm/sec MV max P.5 mmHg MV mean P.7 mmHg MV V2 max: 127.5 cm/sec MV V2 mean: 92.7 cm/sec MV V2 VTI: 31.7 cm PA max P.2 mmHg PA V2 max: 113.7 cm/sec RV S Dm: 12.3 cm/sec Other Measurements & Calculations Ao root area: 8.4 cm² KATHY(I,D): 3.1 cm² KATHY(V,D): 2.9 cm² EDV(Teich): 101.0 ml EF(MOD-sp2): 53.3 % EF(MOD-sp4): 50.0 % EF(sp-el): 57.2 % EF(Teich): 68.1 % ESV(Teich): 32.2 ml FS: 37.9 % LVOT area: 3.3 cm² MV E/A: 0.97 MVA(VTI): 2.8 cm² SV(LVOT): 88.2 ml SV(MOD-sp4): 26.9 ml MD Rula Potter 01/21/2025, 11: 35 AM Ordering Physician: Andrzej Gaston Referring Physician: Andrzej Gaston Performed By: PARK
--- NOTE | 2025-01-21 11:38 | HISTORY & PHYSICAL EXAMINATION ---
Chief Complaint Chief Complaint Chief Complaint: shortness of breath History of Present Illness Admitted From Admitted From:: home History Obtained From Records Reviewed: PCP notes History obtained from: Patient History of Present Illness HPI Comment/Other: Presents to the ED with a 10 day hx of acute respiratory symptoms, worsening with GARCIA, SOB. not able to tolerate standing at the kitchen sink and doing her dishes. She realized last night that she needed to seek care. This AM she had an episode of coughing up green sputum. 2 days ago she flew from [place] to here and had a very long day. At that point she had been sick for about a week with this upper respiratory virus. She has been running subjective fevers she has had a very poor appetite. Since she has been in the emergency department she has gotten a stat echocardiogram, read pending, she has had an EKG showing flipped T waves, she has had a DuoNeb treatment which has made her breathing feel much better. She has not been having any lower extremity edema. She has not been having any paroxysmal nocturnal dyspnea but she has been having increased dyspnea on exertion. Over the last year she has had increasing amount of life stress with a in the family. She has had a strained relationship with her son and no longer speaks with him, and has been a for 6 years. She also moved her living arrangements about 6 months ago which has also been stressful although this overall is a positive experience for her She lives alone in a chcf community. Her daughter Alicia estevez who lives in [place] is her power of fire hydrant mechanic. She does not have a POLST. She wishes for DO NOT RESUSCITATE CODE STATUS. Open to completing POLST, but not today Meds/Allgy Home Medications Ambulatory Orders Medication Instructions Recorded Confirmed aspirin 81 mg chewable tablet 81 mg PO DAILY 03/13/14 01/21/25 (Lukas Chewable Low Dose Aspirin) fluoxetine 40 mg capsule (Prozac) 40 mg PO DAILY 01/1201/21/25 valacyclovir 500 mg tablet See Rx Instructions .Route 01/13/24 01/21/25 .COMPLEX #180 tabs pen needle, diabetic 31 gauge x 05/30/24 09/14/24 1/4" pen needle, diabetic 31 gauge x 05/30/24 09/14/24 5/16" (BD Ultra-Fine Short Pen Needle) amlodipine 2.5 mg tablet (Norvasc) 2.5 mg PO DAILY for blood pressure 06/30/24 01/21/25 #90 tabs atorvastatin 40 mg tablet 60 mg (1.5 x 40 mg) PO QPM # 135 06/30/24 01/21/25 tabs buspirone 10 mg tablet 10 mg PO TID for anxiety #27 0 tabs 06/30/24 01/21/25 dulaglutide 4.5 mg/0.5 mL 4.5 mg (0.5 mL) subcut QWEEK #6 mL 06/30/24 01/21/25 subcutaneous pen injector (Trulicity) losartan 25 mg tablet 50 mg (2 x 25 mg) PO DAILY # 180 11/24/24 01/21/25 tabs metformin 500 mg tablet 1,000 mg (2 x 500 mg) PO BID #360 01/16/25 01/21/25 tabs Allergies Allergies Allergy/AdvReac Type Severity Reaction Status Date / Time nortriptyline Allergy Severe sensitivity Verified 01/21/25 08:00 mirtazapine Allergy Intermediate Sensitivity Verified 01/21/25 08:00 trazodone Allergy Mild Sensitivity Verified 01/21/25 08:00 venlafaxine HCl * (From Allergy Mild Sensitivity Verified 01/21/25 08:00 Effexor) codeine Allergy Nausea Verified 01/21/25 08:00 PET DANDER, DOG HAIR Allergy Severe Unknown Uncoded 01/21/25 08:00 [facility] Active Problems All Active Problems (Updated 01/21/25 @ 15:54 by WANG Rodrigues) Takotsubo cardiomyopathy (Acute) Heart failure (Chronic) Rhinovirus infection (Acute) Hypoxia (Acute) Pneumonia (Acute) Electrocardiogram showing T wave abnormalities (Acute) Dehydration (Acute) Flu-like symptoms (Acute) Dyspnea (Acute) IgM kappa monoclonal gammopathy (Acute) Screening for malignant neoplasm of colon (Chronic) Allergic rhinitis (Acute) Obesity (Acute) Genital herpes (Acute) Lichen sclerosus (Acute) Major depressive disorder, recurrent, moderate (Acute) Benign essential hypertension (Acute) Type 2 diabetes mellitus (Acute) Hyperlipidemia (Acute) Chronic kidney disease, stage 3a (Acute) Generalized anxiety disorder (Acute) Thrombocytosis (Acute) Postmenopausal status (Acute) Encounter for immunization (Acute) Anemia (Acute) Surgical History Surgical History (Updated 06/30/24 @ 14:36 by Ellie Damico PA-C) S/P total hysterectomy S/P cholecystectomy S/P tonsillectomy Social History Social History (Updated 01/21/25 @ 08:02 by Jorge Shaw, RN, BSN) Smoking Status: Former smoker If you are a former smoker, when did you quit? (Date/Year): 40 years Number of Years Smoked: 3 How many cigarettes a day do you smoke? (20 cigarettes=1 Pk): 20 Second hand tobacco smoke exposure: No Do you dip or chew tobacco?: No Do you vape?: No Patient requests smoking cessation consult: No Initiate information on smoking cessation: No Living arrangement: At home Living Condition: Alone Support Person: Yes How many days per week?: 4 Level: Independent Do you feel safe in your home environment?: Yes History of physical, verbal, emotional, or financial abuse?: No ETOH Use: None Substance Use: denies use Exam Exam Vital Signs: Vital Signs x48h Temp Pulse Pulse Resp BP BP Pulse Ox 01/21/25 16:54 36.6 C 74 20 120/67 93 01/21/25 12:10 18 95 01/21/25 12:01 37.1 C 84 18 121/64 89 L 01/21/25 11:29 37.6 C 88 24 139/70 H 95 O2 Flow Rate 01/21/25 16:54 01/21/25 12:10 2 01/21/25 12:01 01/21/25 11:29 2 Constitutional normal general appearance and no apparent distress occasionally diaphoretic (I have been at the bedside several times today). Well groomed female who appears her stated age. HENMT normocephalic Eyes conjunctivae normal and no scleral icterus Neck/C-Spine visual inspection normal Lymph no lymphadenopathy noted Chest inspection of chest normal Respiratory breath sounds equal bilaterally, normal respiratory effort and clear to auscultation bilaterally seen in the ED directly after neb tx Cardiovascular normal heart rate noted and regular rhythm noted Gastrointestinal abdomen normal to inspection and abdomen soft to palpation Back/Pelvis spine normal to inspection Extremities normal to inspection and no tenderness no pedal edema Neurology no movement abnormality noted, no focal motor deficit noted and GCS 15 Psychiatry mental status grossly normal, oriented x3, thought process normal, cooperative and affect normal tearful at times Skin skin color normal and no rash Conclusion/Plan Problem List (1) Hypoxia: Plan: Acute hypoxic respiratory failure. This patient does not smoke. She has no history of smoking. She is 88% saturation on room air when she comes into the emergency department. This is improved with 2 L via nasal cannula, DuoNeb treatments and IV diuretics. Her acute hypoxic respiratory failure is due to a combination of acute cardiomyopathy likely stress-induced, upper respiratory infection with possible super imposed bacterial pneumonia, community-acquired. (2) Takotsubo cardiomyopathy: Plan: Patient presents with increasing dyspnea on exertion and inability to do activities that normally she could do without a problem. Her EKG on admission shows inverted T waves in lateral leads, with a right bundle branch block. She denies any history of cardiac disease. Stat echocardiogram shows an estimated ejection fraction of 40 to 45% with hypokinesis of distal segments and apex suggestive of stress-induced cardiomyopathy. There is no valvular disease. I had a very long discussion with this patient regarding her recent life stress. About 4 months ago her 44-year-old niece who struggled deeply with domestic abuse, resultant PTSD and substance abuse at the age of 44 due to alcohol related complications. The was very traumatic for all involved. That niece left behind a 5-year-old child who the patient's sister is caring for. 3 years prior to that the patient had 2 become estranged from her alcoholic son and 3 years prior to that she lost her to Alzheimer's disease. In May of this year she was able to move into a chcf community and to a home that she could manage well and this has been a positive move but mixed in with the stress from what is happened recently. In the emergency department she had a troponin of 31 on admission repeat 2 hours later 34.5. I do not see any need to further trend this troponin. Her BNP was 832. She denies any cardiac history. Her chest x-ray is suggestive of some fluid overload which is likely related to the cardiomyopathy seen on echocardiogram today. She received 20 mg of Lasix IV in the emergency department. This patient is diuretic riley. We will repeat this again in the morning. We will monitor her electrolyte status. I had a long discussion with this patient regarding her life stress and this diagnosis. We discussed appropriate psychiatric care combined with cognitive behavioral therapy. She has been off her Prozac for about a week. We are restarting this. She has been off it because she ran out of the prescription while she was traveling. Also discussed cognitive behavioral therapy. She is a member of multiple community groups to include the [facility] and adult children of alcoholics. It seems that she has a socially enriched life but may need some CBT. I also have recommended outpatient cardiac follow-up which we we will arrange for her at her discharge primary care appointment. (3) Rhinovirus infection: Plan: She has been sick with URI symptoms since 01/11/2025. Looking at her chest x- ray from admission there is moderate peribronchial thickening and patchy opacities suggestive of possible pneumonitis. She has prominent esther and pulmonary vascular congestion. This patient had some wheezing on exam on presentation to the emergency department. This was cleared at the time of my exam. I am giving the patient 10 mg of Decadron today. I am starting her on albuterol Atrovent nebulizer treatments 4 times daily as needed via RT. We are supporting her with oxygen therapy as needed to maintain oxygen saturation greater than 92%. (4) Pneumonia: Plan: Community-acquired pneumonia is quite possible looking at her chest x-ray, and her leukocytosis of 16. She received Unasyn in the emergency department. I am changing her therapy to Rocephin and azithromycin. She will receive 5 days of Rocephin, if she is discharged prior to completion we will complete this with Augmentin. She will receive 3 days of azithromycin. (5) Major depressive disorder, recurrent, moderate: Plan: Her depression has been treated previously with fluoxetine 40 mg daily as well as BuSpar 10 mg 3 times daily. She has been in cognitive behavioral therapy previously but is not currently engaged with a therapist. She does use community support groups. Upon discharge I would encourage follow-up with our psychiatric nurse practitioners at [facility] for further medication management and possible referral into cognitive behavioral therapy. This patient, during the interview, expresses gratitude for the things in her life that are positive and she seems to have a lot that she can count on and a lot to look forward to. She truly enjoys her life. She also sees that she has been through some traumatic and very negative experiences. She recognizes that the stressors are challenging. (6) Type 2 diabetes mellitus: Plan: At home she is on metformin 1000 mg twice daily and Trulicity 4.5 mg subcutaneously weekly. I explained to her that while she is in the hospital she will be treated with sliding scale insulin. Also explained to her that we are putting her on steroids to reduce the inflammation in her lungs and this will certainly make her blood sugar go up. Her last hemoglobin A1c was 6.5% in June of this year. It has been 6 months, we will repeat this with a.m. labs. Plan I have spent 85 minutes in the care of this patient today. This includes time [id number], review and ordering of diagnostic imaging and laboratory studies and consultation with other providers. Monitoring the patient's signs symptoms, evaluation of medication effectiveness and patient's response to treatment. Lab Results Lab results reviewed: Yes 01/21/25 08:21 01/21/25 08:21 Diagnostic Imaging Results Diagnostic Imaging Results: positive Final report reviewed and Read independently EKG Results EKG Interpreted Independently: Yes EKG Findings: t wave inversion, no ST elevation right BBB Core Measures DVT/VTE - Prophylaxis VTE/DVT Device ordered at admit?: Yes VTE/DVT Prophylaxis med ordered at admit?: Yes
[2025-01-21] MEDS: FLUoxetine 10 MG CAPSULE PO SCH (12:52)
[2025-01-21] MEDS: INSULIN LISPRO 300 UNIT/3 ML PEN SUBQ SCH ×3 (13:04→21:57)
[2025-01-21] MEDS: cefTRIAXone 1 GM VIAL IVP ONE (17:34)
[2025-01-21] MEDS: SODIUM CHLORIDE FLUSH 0.9% 10 ML SYRINGE IVP SCH (17:34)
[2025-01-21] MEDS: AZITHROMYCIN INJ 500 MG in SODIUM CHLORIDE 0.9% 250 ML IV ONE (17:34)
[2025-01-22 04:42] LABS: HCT - HEMATOCRIT 30.5 % (37.0-47.0); HGB - HEMOGLOBIN 9.9 g/dL (12.0-16.0); MEAN PLATELET VOLUME 8.2 fL (7.9-10.8); NRBC ABSOLUTE COUNT (AUTO) 0.00 x10^3/uL; NUCLEATED RED BLOOD CELLS AUTO 0.0 /100WBC; PLT - PLATELET COUNT 554 10^3/uL (130-450); RED CELL DISTRIBUTION WIDTH 13.2 % (12.0-15.0)
[2025-01-22 04:58] LABS: BUN - BLOOD UREA NITROGEN 20.0 mg/dL (6-20); CARBON DIOXIDE - CO2 25.0 mmol/L (21-32); CREATININE 0.9 mg/dL (0.6-1.3); GFR - MDRD 62.0 (>89)
[2025-01-22] MEDS ORDERED: FLUoxetine 10 MG CAPSULE PO SCH (09:00)
[2025-01-22] MEDS: ENOXAPARIN 40 MG/0.4 ML SYRINGE SUBQ SCH (09:28)
[2025-01-22] MEDS: LOSARTAN 50 MG TABLET PO SCH (09:30)
[2025-01-22] MEDS: cefTRIAXone 1 GM in SODIUM CHLORIDE 0.9% MINIBAG 100 ML IV SCH (09:36)
[2025-01-22] MEDS: AZITHROMYCIN INJ 500 MG in SODIUM CHLORIDE 0.9% 250 ML IV SCH (10:22)
[2025-01-22 11:49] LABS: ESTIMATED AVERAGE GLUCOSE 154 mg/dL (70-100); HEMOGLOBIN A1c% 7.0 % (4.27-6.07)
--- NOTE | 2025-01-22 13:00 | PHARMACY PROGRESS NOTE ---
Best Possible Medication History Admit Date and Time: 01/21/25 636902 Home Medications Medication Instructions Recorded Confirmed Type fluoxetine 40 mg capsule (Prozac) 40 mg PO DAILY 01/1201/22/25 History pen needle, diabetic 31 gauge x 05/30/24 09/14/24 His tory 1/4" pen needle, diabetic 31 gauge x 05/30/24 09/14/24 His tory 5/16" (BD Ultra-Fine Short Pen Needle) amlodipine 2.5 mg tablet (Norvasc) 2.5 mg PO DAILY for blood pressure 06/30/24 01/22/25 Rx #90 tabs dulaglutide 4.5 mg/0.5 mL 4.5 mg (0.5 mL) subcut QWEEK #6 mL 06/30/24 01/22/25 Rx [facility] losartan 25 mg tablet 50 mg (2 x 25 mg) PO DAILY # 180 11/24/24 01/22/25 Rx tabs metformin 500 mg tablet 1,000 mg (2 x 500 mg) PO BID #360 01/16/25 01/22/25 Rx tabs Processed by: Pharmacy Medications reviewed in ED?: Yes Medication History completed: Yes Patient Interview: Completed Secondary Source(s): Insurance records [facility] Statement: As the person ultimately responsible for medication therapy, providers are able to order a medication from an existing home medication list in [facility] via the "Reconcile Routine" prior to Confirmation of that medication by clerical support. Such practice is discouraged except when the physician, in their clinical judgment, deems that a medical need exists for a medication without regard to previous use.
--- NOTE | 2025-01-22 15:46 | PROVIDER PROGRESS NOTE ---
Subjective Prog Note Date Prog Note Date: 01/22/25 Subjective Subjective: She is doing better, but still has feelings of shortness of breath and not being able to catch her breath. she has been able to wean to RA at rest today. tomorrow, she will be seen by PT for safe dc to home. no PT in house at present. Current Medications Current Medications Current Medications: Current Medications Generic Name Dose Route Start Last Admin Trade Name Freq PRN Reason Stop Dose Admin Acetaminophen 650 mg 01/21/25 11:28 Acetaminophen 325 Mg Tablet PO Q4HR PRN Pain 1 to 4, or Fever Albuterol/Ipratropium 3 ml 01/21/25 11:28 Ipratropium/Albuterol 3 Ml Neb INH Q4HR PRN Wheezing Amlodipine Besylate 2.5 mg 01/22/25 09:00 01/22/25 09:30 Amlodipine 5 Mg Tablet PO 2.5 mg DAILY SEBASTIÁN Administration Buspirone HCl 10 mg 01/21/25 14:00 01/22/25 13:51 Buspirone 5 Mg Tablet PO 10 mg TID SEBASTIÁN Administration Dexamethasone 6 mg 01/22/25 09:00 01/22/25 09:29 Dexamethasone 4 Mg Tablet PO 01/25/25 09:01 6 mg DAILY SEBASTIÁN Administration Enoxaparin Sodium 40 mg 01/22/25 09:00 01/22/25 09:28 Enoxaparin 40 Mg/0.4 Ml Syringe SUBQ 40 mg DAILY SEBASTIÁN Administration Fluoxetine HCl 40 mg 01/21/25 12:00 01/22/25 09:32 Fluoxetine 10 Mg Capsule PO 40 mg DAILY SEBASTIÁN Administration Ceftriaxone Sodium 1 gm/ 100 mls @ 200 mls/hr 01/22/25 09:00 01/22/25 10:10 Sodium Chloride IV 01/26/25 09:29 Infused DAILY SEBASTIÁN Infusion Azithromycin 500 mg/ Sodium 250 mls @ 250 mls/hr 01/22/25 09:00 01/22/25 11:25 Chloride IV 01/24/25 09:59 Infused DAILY SEBASTIÁN Infusion Insulin Human Lispro 2 - 10 unit 01/21/25 21:56 01/22/25 12:03 Insulin Lispro 300 Unit/3 Ml Pen SUBQ 4 unit 0800,1200,1700,2100 SEBASTIÁN Administration Protocol Lorazepam 1 mg 01/21/25 21:21 01/21/25 21:55 Lorazepam 1 Mg Tablet PO 1 mg Q4H PRN Administration Anxiety Losartan Potassium 50 mg 01/22/25 09:00 01/22/25 09:30 Losartan 50 Mg Tablet PO 50 mg DAILY SEBASTIÁN Administration Ondansetron HCl 4 mg 01/21/25 11:28 Ondansetron Odt 4 Mg Tablet TL Q6HR PRN Nausea / Vomiting Oxycodone HCl 5 mg 01/21/25 11:28 Oxycodone 5 Mg Tablet PO Q4HR PRN Pain 5 to 7 Sodium Chloride 10 ml 01/21/25 11:28 Sodium Chloride Flush 0.9% 10 Ml Syringe IVP PRN PRN NEEDED PER PROVIDER ORDERS Sodium Chloride 10 ml 01/21/25 17:00 01/22/25 09:32 Sodium Chloride Flush 0.9% 10 Ml Syringe IVP 10 ml 0100,0900,1700 SEBASTIÁN Administration Objective Vital Signs/Intake & Output Reviewed Vital Signs: Yes Vital Signs: Vital Signs x48h Temp Pulse Resp BP Pulse Ox O2 Flow Rate 01/22/25 14:58 94 01/22/25 12:56 93 01/22/25 11:55 36.5 C 78 16 127/60 93 01/22/25 10:36 95 01/22/25 10:35 97 1 01/22/25 07:50 36.7 C 66 16 125/60 95 1 Intake & Output: Intake & Output 01/19/25 01/20/25 01/21/25 01/22/25 23:59 23:59 22:59 23:59 Intake Total 3665 / 3665 1770 / 1770 Output Total 0 / 0 Balance 3665 / 3665 1770 / 1770 Weight (kg) 58.5 kg Objective General Appearance: positive No acute distress, Alert and Other (occasionally diaphoretic as I am talking to her. ) Eyes Bilateral: positive Normal inspection ENT: positive ENT inspection nml Neck: positive Nml inspection Respiratory: positive No respiratory distress and Breath sounds nml Cardiovascular: positive Regular rate & rhythm Abdomen: positive No distention Skin: positive Diaphoresis Extremities: positive No pedal edema Neurologic/Psychiatric: positive Oriented x3 Lab Results 01/22/25 04:34 01/22/25 04:34 Other Labs: Lab Results x24hrs 01/22/25 01/22/25 01/22/25 Range/Units 11:26 07:49 07:32 WBC (4.8-10.8) x10^3/uL RBC (4.20-5.40) 10^6/uL Hgb (12.0-16.0) g/dL Hct (37.0-47.0) % MCV (81.0-99.0) fL MCH (27.0-31.0) pg MCHC (32.0-36.0) g/dL RDW (12.0-15.0) % Plt Count (130-450) 10^3/uL MPV (7.9-10.8) fL Neut # (Auto) (1.5-6.6) 10^3/uL Lymph # (Auto) (1.5-3.5) 10^3/uL [place] # (Auto) (0.0-1.0) 10^3/uL Eos # (Auto) (0.0-0.7) 10^3/uL Baso # (Auto) (0.0-0.1) 10^3/uL Absolute Nucleated RBC x10^3/uL Nucleated RBC % /100WBC Sodium (135-145) mmol/L Potassium (3.5-4.5) mmol/L Chloride (101-111) mmol/L Carbon Dioxide (21-32) mmol/L Anion Gap (6-13) BUN (6-20) mg/dL Creatinine (0.6-1.3) mg/dL Estimated GFR (MDRD) (>89) Glucose (74-104) mg/dL POC Whole Bld Glucose 221 183 (70-100) mg/dL Estimat Average Glucose (70-100) mg/dL Hemoglobin A1c % (4.27-6.07) % Lactic Acid 0.8 (0.5-2.2) mmol/L Calcium (8.5-10.3) mg/dL 01/22/25 01/21/25 01/21/25 Range/Units 04:34 20:31 16:39 WBC 9.4 (4.8-10.8) x10^3/uL RBC 3.46 L (4.20-5.40) 10^6/uL Hgb 9.9 L (12.0-16.0) g/dL Hct 30.5 L (37.0-47.0) % MCV 88.2 (81.0-99.0) fL MCH 28.6 (27.0-31.0) pg MCHC 32.5 (32.0-36.0) g/dL RDW 13.2 (12.0-15.0) % Plt Count 554 H (130-450) 10^3/uL MPV 8.2 (7.9-10.8) fL Neut # (Auto) 7.9 H (1.5-6.6) 10^3/uL Lymph # (Auto) 0.9 L (1.5-3.5) 10^3/uL [place] # (Auto) 0.5 (0.0-1.0) 10^3/uL Eos # (Auto) 0.0 (0.0-0.7) 10^3/uL Baso # (Auto) 0.0 (0.0-0.1) 10^3/uL Absolute Nucleated RBC 0.00 x10^3/uL Nucleated RBC % 0.0 /100WBC Sodium 135 (135-145) mmol/L Potassium 4.4 (3.5-4.5) mmol/L Chloride 102 (101-111) mmol/L Carbon Dioxide 25 (21-32) mmol/L Anion Gap 8.0 (6-13) BUN 20 (6-20) mg/dL Creatinine 0.9 (0.6-1.3) mg/dL Estimated GFR (MDRD) 62 L (>89) Glucose 206 H (74-104) mg/dL POC Whole Bld Glucose 337 384 (70-100) mg/dL Estimat Average Glucose 154 H (70-100) mg/dL Hemoglobin A1c % 7.0 H (4.27-6.07) % Lactic Acid (0.5-2.2) mmol/L Calcium 8.7 (8.5-10.3) mg/dL ABX Reporting Has patient been on IV antibiotics over the past 48 hours?: Yes Assessment/Plan Problem List (1) Hypoxia: Impression: Acute hypoxic respiratory failure. This patient does not smoke. She has no history of smoking. She is 88% saturation on room air when she comes into the emergency department. This is improved with 2 L via nasal cannula, DuoNeb treatments and IV diuretics (given one dose LAsix 20mg in the ED). Her acute hypoxic respiratory failure is due to a combination of acute cardiomyopathy likely stress-induced, upper respiratory infection with possible super imposed bacterial pneumonia, community-acquired. She is improving and is able to tolerate room air at rest. I am planning PT evaluation tomorrow for her (no PT in house today), hopefully will be well enough to dc to home alone with outpt services. (2) Takotsubo cardiomyopathy: Impression: Patient presents with increasing dyspnea on exertion and inability to do activities that normally she could do without a problem. Her EKG on admission shows inverted T waves in lateral leads, with a right bundle branch block. She denies any history of cardiac disease. Stat echocardiogram shows an estimated ejection fraction of 40 to 45% with hypokinesis of distal segments and apex suggestive of stress-induced cardiomyopathy. There is no valvular disease. I had a very long discussion with this patient regarding her recent life stress on the date of admission. She recognizes the need for ongong mental health care. We discussed appropriate psychiatric care combined with cognitive behavioral therapy. She has been off her Prozac for about a week. We are restarting this. She has been off it because she ran out of the prescription while she was traveling. In the emergency department she had a troponin of 31 on admission repeat 2 hours later 34.5. I do not see any need to further trend this troponin. Her BNP was 832. She denies any cardiac history. Her chest x-ray is suggestive of some fluid overload which is likely related to the cardiomyopathy seen on echocardiogram. She received 20 mg of Lasix IV in the emergency department. I also have recommended outpatient cardiac follow-up which we we will arrange for her at her discharge primary care appointment. She should have followup echocardiograghy in about 4 weeks. (3) Rhinovirus infection: Impression: She has been sick with URI symptoms since 01/11/2025. Looking at her chest x- ray from admission there is moderate peribronchial thickening and patchy opacities suggestive of possible pneumonitis. She has prominent esther and pulmonary vascular congestion. This patient had some wheezing on exam on presentation to the emergency department. Her lungs are clear to auscultation on my exam today. I am giving her Decadron 6 mg every morning for a total of 5 days. She is getting DuoNeb treatments 4 times daily as needed via RT We are supporting her with oxygen therapy as needed to maintain oxygen saturation greater than 92%. (4) Pneumonia: Impression: Community-acquired pneumonia is quite possible looking at her chest x-ray, and her leukocytosis of 16. Leukocytosis has improved to 9.4 today. She is day 2 of 3 azithromycin day 2 of 5 Rocephin (5) Major depressive disorder, recurrent, moderate: Impression: Her depression has been treated previously with fluoxetine 40 mg daily as well as BuSpar 10 mg 3 times daily. She has been in cognitive behavioral therapy previously but is not currently engaged with a therapist. She does use community support groups. Upon discharge I would encourage follow-up with our psychiatric nurse practitioners at [facility] for further medication management and possible referral into cognitive behavioral therapy. She continues to focus on positive aspects of her life and things that she has to look forward to. I do not sense any propensity for self-harm or suicidal ideation (6) Type 2 diabetes mellitus: Impression: At home she is on metformin 1000 mg twice daily and Trulicity 4.5 mg subcutaneously weekly. Hemoglobin A1c is 7%. Her blood glucose has been elevated after admission secondary to steroids. She is on sliding scale insulin This patient's diagnosis and treatment plan was discussed this AM with attending physician as a part of multi disciplinary rounding meeting. I have spent 40 minutes in the care of this patient today. This includes time [id number], review and ordering of diagnostic imaging and laboratory studies and consultation with other providers. Monitoring the patient's signs symptoms, evaluation of medication effectiveness and patient's response to treatment.
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
[2025-01-22] MEDS ORDERED: INSULIN LISPRO 300 UNIT/3 ML PEN SUBQ SCH (21:26)
[2025-01-23 05:02] LABS: HCT - HEMATOCRIT 31.6 % (37.0-47.0); HGB - HEMOGLOBIN 10.3 g/dL (12.0-16.0); MEAN PLATELET VOLUME 8.2 fL (7.9-10.8); NRBC ABSOLUTE COUNT (AUTO) 0.00 x10^3/uL; NUCLEATED RED BLOOD CELLS AUTO 0.0 /100WBC; PLT - PLATELET COUNT 661 10^3/uL (130-450); RED CELL DISTRIBUTION WIDTH 13.2 % (12.0-15.0)
[2025-01-23 05:24] LABS: BUN - BLOOD UREA NITROGEN 26.0 mg/dL (6-20); CARBON DIOXIDE - CO2 24.0 mmol/L (21-32); CREATININE 1.0 mg/dL (0.6-1.3); GFR - MDRD 55.0 (>89)
[2025-01-23] MEDS: INSULIN LISPRO 300 UNIT/3 ML PEN SUBQ SCH (09:12)
[2025-01-23] MEDS: FUROSEMIDE 20 MG/2 ML VIAL IVP SCH (09:17)
--- NOTE | 2025-01-23 09:35 | PROVIDER PROGRESS NOTE ---
Subjective Prog Note Date Prog Note Date: 01/23/25 Current Medications Current Medications Current Medications: Current Medications Generic Name Dose Route Start Last Admin Trade Name Freq PRN Reason Stop Dose Admin Acetaminophen 650 mg 01/21/25 11:28 Acetaminophen 325 Mg Tablet PO Q4HR PRN Pain 1 to 4, or Fever Albuterol/Ipratropium 3 ml 01/21/25 11:28 Ipratropium/Albuterol 3 Ml Neb INH Q4HR PRN Wheezing Amlodipine Besylate 2.5 mg 01/22/25 09:00 01/23/25 09:13 Amlodipine 5 Mg Tablet PO 2.5 mg DAILY SEBASTIÁN Administration Buspirone HCl 10 mg 01/21/25 14:00 01/23/25 06:55 Buspirone 5 Mg Tablet PO 10 mg TID SEBASTIÁN Administration Dexamethasone 6 mg 01/22/25 09:00 01/23/25 09:15 Dexamethasone 4 Mg Tablet PO 01/25/25 09:01 6 mg DAILY SEBASTIÁN Administration Enoxaparin Sodium 40 mg 01/22/25 09:00 01/23/25 09:12 Enoxaparin 40 Mg/0.4 Ml Syringe SUBQ 40 mg DAILY SEBASTIÁN Administration Fluoxetine HCl 40 mg 01/21/25 12:00 01/23/25 09:15 Fluoxetine 10 Mg Capsule PO 40 mg DAILY SEBASTIÁN Administration Furosemide 20 mg 01/23/25 09:00 01/23/25 09:17 Furosemide 20 Mg/2 Ml Vial IVP 20 mg DAILY SEBASTIÁN Administration Ceftriaxone Sodium 1 gm/ 100 mls @ 200 mls/hr 01/22/25 09:00 01/23/25 09:24 Sodium Chloride IV 01/26/25 09:29 200 mls/hr DAILY SEBASTIÁN Administration Azithromycin 500 mg/ Sodium 250 mls @ 250 mls/hr 01/22/25 09:00 01/22/25 11:25 Chloride IV 01/24/25 09:59 Infused DAILY SEBASTIÁN Infusion Insulin Human Lispro 3 - 11 unit 01/23/25 08:00 01/23/25 09:12 Insulin Lispro 300 Unit/3 Ml Pen SUBQ 3 unit 0800,1200,1700,2100 SEBASTIÁN Administration Protocol Lorazepam 1 mg 01/21/25 21:21 01/21/25 21:55 Lorazepam 1 Mg Tablet PO 1 mg Q4H PRN Administration Anxiety Losartan Potassium 50 mg 01/22/25 09:00 01/23/25 09:15 Losartan 50 Mg Tablet PO 50 mg DAILY SEBASTIÁN Administration Ondansetron HCl 4 mg 01/21/25 11:28 Ondansetron Odt 4 Mg Tablet TL Q6HR PRN Nausea / Vomiting Oxycodone HCl 5 mg 01/21/25 11:28 Oxycodone 5 Mg Tablet PO Q4HR PRN Pain 5 to 7 Sodium Chloride 10 ml 01/21/25 11:28 Sodium Chloride Flush 0.9% 10 Ml Syringe IVP PRN PRN NEEDED PER PROVIDER ORDERS Sodium Chloride 10 ml 01/21/25 17:00 01/23/25 09:17 Sodium Chloride Flush 0.9% 10 Ml Syringe IVP 10 ml 0100,0900,1700 SEBASTIÁN Administration Objective Vital Signs/Intake & Output Reviewed Vital Signs: Yes Vital Signs: Vital Signs x48h Temp Pulse Resp BP Pulse Ox 01/23/25 05:20 36.6 C 78 14 150/78 H 94 Intake & Output: Intake & Output 01/20/25 01/21/25 01/22/25 01/23/25 23:59 22:59 23:59 23:59 Intake Total 3665 / 3665 2820 / 2820 440 / 440 Output Total 0 / 0 Balance 3665 / 3665 2820 / 2820 440 / 440 Weight (kg) 58.5 kg Objective General Appearance: positive No acute distress, Alert and Other (occasionally diaphoretic as I am talking to her. ) Eyes Bilateral: positive Normal inspection ENT: positive ENT inspection nml Neck: positive Nml inspection Respiratory: positive No respiratory distress and Breath sounds nml Cardiovascular: positive Regular rate & rhythm Abdomen: positive No distention Skin: positive Diaphoresis Extremities: positive No pedal edema Neurologic/Psychiatric: positive Oriented x3 Lab Results 01/23/25 04:54 01/23/25 04:54 Other Labs: Lab Results x24hrs 01/23/25 01/23/25 01/22/25 Range/Units 07:57 04:54 21:04 WBC 16.2 H (4.8-10.8) x10^3/uL RBC 3.62 L (4.20-5.40) 10^6/uL Hgb 10.3 L (12.0-16.0) g/dL Hct 31.6 L (37.0-47.0) % MCV 87.3 (81.0-99.0) fL MCH 28.5 (27.0-31.0) pg MCHC 32.6 (32.0-36.0) g/dL RDW 13.2 (12.0-15.0) % Plt Count 661 H (130-450) 10^3/uL MPV 8.2 (7.9-10.8) fL Neut # (Auto) 13.9 H (1.5-6.6) 10^3/uL Lymph # (Auto) 1.4 L (1.5-3.5) 10^3/uL [place] # (Auto) 0.8 (0.0-1.0) 10^3/uL Eos # (Auto) 0.0 (0.0-0.7) 10^3/uL Baso # (Auto) 0.0 (0.0-0.1) 10^3/uL Absolute Nucleated RBC 0.00 x10^3/uL Nucleated RBC % 0.0 /100WBC Sodium 136 (135-145) mmol/L Potassium 4.0 (3.5-4.5) mmol/L Chloride 104 (101-111) mmol/L Carbon Dioxide 24 (21-32) mmol/L Anion Gap 8.0 (6-13) BUN 26 H (6-20) mg/dL Creatinine 1.0 (0.6-1.3) mg/dL Estimated GFR (MDRD) 55 L (>89) Glucose 207 H (74-104) mg/dL POC Whole Bld Glucose 170 310 (70-100) mg/dL Estimat Average Glucose (70-100) mg/dL Hemoglobin A1c % (4.27-6.07) % Calcium 8.8 (8.5-10.3) mg/dL 01/22/25 01/22/25 01/22/25 Range/Units 20:39 16:18 11:26 WBC (4.8-10.8) x10^3/uL RBC (4.20-5.40) 10^6/uL Hgb (12.0-16.0) g/dL Hct (37.0-47.0) % MCV (81.0-99.0) fL MCH (27.0-31.0) pg MCHC (32.0-36.0) g/dL RDW (12.0-15.0) % Plt Count (130-450) 10^3/uL MPV (7.9-10.8) fL Neut # (Auto) (1.5-6.6) 10^3/uL Lymph # (Auto) (1.5-3.5) 10^3/uL [place] # (Auto) (0.0-1.0) 10^3/uL Eos # (Auto) (0.0-0.7) 10^3/uL Baso # (Auto) (0.0-0.1) 10^3/uL Absolute Nucleated RBC x10^3/uL Nucleated RBC % /100WBC Sodium (135-145) mmol/L Potassium (3.5-4.5) mmol/L Chloride (101-111) mmol/L Carbon Dioxide (21-32) mmol/L Anion Gap (6-13) BUN (6-20) mg/dL Creatinine (0.6-1.3) mg/dL Estimated GFR (MDRD) (>89) Glucose (74-104) mg/dL POC Whole Bld Glucose 330 323 221 (70-100) mg/dL Estimat Average Glucose (70-100) mg/dL Hemoglobin A1c % (4.27-6.07) % Calcium (8.5-10.3) mg/dL 01/22/25 Range/Units 04:34 WBC (4.8-10.8) x10^3/uL RBC (4.20-5.40) 10^6/uL Hgb (12.0-16.0) g/dL Hct (37.0-47.0) % MCV (81.0-99.0) fL MCH (27.0-31.0) pg MCHC (32.0-36.0) g/dL RDW (12.0-15.0) % Plt Count (130-450) 10^3/uL MPV (7.9-10.8) fL Neut # (Auto) (1.5-6.6) 10^3/uL Lymph # (Auto) (1.5-3.5) 10^3/uL [place] # (Auto) (0.0-1.0) 10^3/uL Eos # (Auto) (0.0-0.7) 10^3/uL Baso # (Auto) (0.0-0.1) 10^3/uL Absolute Nucleated RBC x10^3/uL Nucleated RBC % /100WBC Sodium (135-145) mmol/L Potassium (3.5-4.5) mmol/L Chloride (101-111) mmol/L Carbon Dioxide (21-32) mmol/L Anion Gap (6-13) BUN (6-20) mg/dL Creatinine (0.6-1.3) mg/dL Estimated GFR (MDRD) (>89) Glucose (74-104) mg/dL POC Whole Bld Glucose (70-100) mg/dL Estimat Average Glucose 154 H (70-100) mg/dL Hemoglobin A1c % 7.0 H (4.27-6.07) % Calcium (8.5-10.3) mg/dL ABX Reporting Has patient been on IV antibiotics over the past 48 hours?: Yes Assessment/Plan Problem List (1) Hypoxia: Impression: Acute hypoxic respiratory failure. This patient does not smoke. She has no history of smoking. She is 88% saturation on room air when she comes into the emergency department. This is improved with 2 L via nasal cannula, DuoNeb treatments and IV diuretics (given one dose LAsix 20mg in the ED). Her acute hypoxic respiratory failure is due to a combination of acute cardiomyopathy likely stress-induced, upper respiratory infection with possible super imposed bacterial pneumonia, community-acquired. She is improving and is able to tolerate room air at rest. I am planning PT evaluation tomorrow for her (no PT in house today), hopefully will be well enough to dc to home alone with outpt services. (2) Takotsubo cardiomyopathy: Impression: Patient presents with increasing dyspnea on exertion and inability to do activities that normally she could do without a problem. Her EKG on admission shows inverted T waves in lateral leads, with a right bundle branch block. She denies any history of cardiac disease. Stat echocardiogram shows an estimated ejection fraction of 40 to 45% with hypokinesis of distal segments and apex suggestive of stress-induced cardiomyopathy. There is no valvular disease. I had a very long discussion with this patient regarding her recent life stress on the date of admission. She recognizes the need for [facility]. We discussed appropriate psychiatric care combined with cognitive behavioral therapy. She has been off her Prozac for about a week. We are restarting this. She has been off it because she ran out of the prescription while she was traveling. In the emergency department she had a troponin of 31 on admission repeat 2 hours later 34.5. I do not see any need to further trend this troponin. Her BNP was 832. She denies any cardiac history. Her chest x-ray is suggestive of some fluid overload which is likely related to the cardiomyopathy seen on echocardiogram. She received 20 mg of Lasix IV in the emergency department. I also have recommended outpatient cardiac follow-up which we we will arrange for her at her discharge primary care appointment. She should have followup echocardiograghy in about 4 weeks. (3) Rhinovirus infection: Impression: She has been sick with URI symptoms since 01/11/2025. Looking at her chest x- ray from admission there is moderate peribronchial thickening and patchy opacities suggestive of possible pneumonitis. She has prominent esther and pulmonary vascular congestion. This patient had some wheezing on exam on presentation to the emergency department. Her lungs are clear to auscultation on my exam today. I am giving her Decadron 6 mg every morning for a total of 5 days. She is getting DuoNeb treatments 4 times daily as needed via RT We are supporting her with oxygen therapy as needed to maintain oxygen saturation greater than 92%. (4) Pneumonia: Impression: Community-acquired pneumonia is quite possible looking at her chest x-ray, and her leukocytosis of 16. Leukocytosis has improved to 9.4 today. She is day 2 of 3 azithromycin day 2 of 5 Rocephin (5) Major depressive disorder, recurrent, moderate: Impression: Her depression has been treated previously with fluoxetine 40 mg daily as well as BuSpar 10 mg 3 times daily. She has been in cognitive behavioral therapy previously but is not currently engaged with a therapist. She does use community support groups. Upon discharge I would encourage follow-up with our psychiatric nurse practitioners at [facility] for further medication management and possible referral into cognitive behavioral therapy. She continues to focus on positive aspects of her life and things that she has to look forward to. I do not sense any propensity for self-harm or suicidal ideation (6) Type 2 diabetes mellitus: Impression: At home she is on metformin 1000 mg twice daily and Trulicity 4.5 mg subcutaneously weekly. Hemoglobin A1c is 7%. Her blood glucose has been elevated after admission secondary to steroids. She is on sliding scale insulin This patient's diagnosis and treatment plan was discussed this AM with attending physician as a part of multi disciplinary rounding meeting. I have spent 40 minutes in the care of this patient today. This includes time [id number], review and ordering of diagnostic imaging and laboratory studies and consultation with other providers. Monitoring the patient's signs symptoms, evaluation of medication effectiveness and patient's response to treatment.
--- NOTE | 2025-01-23 13:30 | Discharge Summary ---
Discharge Summary Admit Date: 01/21/25 Discharge Date: 01/23/25 Discharging Provider: Diamond Jerez PA-C Code Status: Do Not Attempt Resuscitation DIAGNOSES Discharge Diagnoses with Status of Each Condition: Acute hypoxic respiratory failure, resolved Takotsubo cardiomyopathy Rhinovirus infection, resolving Community-acquired pneumonia, treated Depression, chronic, treatment resumed Type 2 diabetes, A1c 7% HPI History of Present Illness: Presents to the ED with a 10 day hx of acute respiratory symptoms, worsening with GARCIA, SOB. not able to tolerate standing at the kitchen sink and doing her dishes. She realized last night that she needed to seek care. This AM she had an episode of coughing up green sputum. 2 days ago she flew from [place] to here and had a very long day. At that point she had been sick for about a week with this upper respiratory virus. She has been running subjective fevers she has had a very poor appetite. Since she has been in the emergency department she has gotten a stat echocardiogram, read pending, she has had an EKG showing flipped T waves, she has had a DuoNeb treatment which has made her breathing feel much better. She has not been having any lower extremity edema. She has not been having any paroxysmal nocturnal dyspnea but she has been having increased dyspnea on exertion. Over the last year she has had increasing amount of life stress with a in the family. She has had a strained relationship with her son and no longer speaks with him, and has been a for 6 years. She also moved her living arrangements about 6 months ago which has also been stressful although this overall is a positive experience for her She lives alone in a long term community. Her daughter Alicia estevez who lives in [place] is her power of erisa attorney. She does not have a POLST. She wishes for DO NOT RESUSCITATE CODE STATUS. Open to completing POLST, but not today HOSPITAL COURSE Hospital Course: (1) Hypoxia: Acute hypoxic respiratory failure. This patient does not smoke. She has no history of smoking. She is 88% saturation on room air when she comes into the emergency department. This is improved with 2 L via nasal cannula, DuoNeb treatments and IV diuretics (given one dose LAsix 20mg in the ED). Her acute hypoxic respiratory failure is due to a combination of acute cardiomyopathy likely stress-induced, upper respiratory infection with possible super imposed bacterial pneumonia, community-acquired. She is improving and is able to tolerate room air at rest. She was able to tolerate exercise oxygen desaturation test prior to dc to home. (2) Takotsubo cardiomyopathy: Impression: Patient presents with increasing dyspnea on exertion and inability to do activities that normally she could do without a problem. Her EKG on admission shows inverted T waves in lateral leads, with a right bundle branch block. She denies any history of cardiac disease. Stat echocardiogram shows an estimated ejection fraction of 40 to 45% with hypokinesis of distal segments and apex suggestive of stress-induced cardiomyopathy. There is no valvular disease. I had a very long discussion with this patient regarding her recent life stress on the date of admission. She recognizes the need for ongong mental health care. We discussed appropriate psychiatric care combined with cognitive behavioral therapy. She has been off her Prozac for about a week. We are restarting this. She has been off it because she ran out of the prescription while she was traveling. In the emergency department she had a troponin of 31 on admission repeat 2 hours later 34.5. I do not see any need to further trend this troponin. Her BNP was 832. She denies any cardiac history. Her chest x-ray is suggestive of some fluid overload which is likely related to the cardiomyopathy seen on echocardiogram. She received 20 mg of Lasix IV in the emergency department. no repeat dose was given this admission. I will not dc to home on diruetics. I also have recommended outpatient cardiac follow-up which we we will arrange for her at her discharge primary care appointment. She should have followup echocardiograghy in about 4 weeks. (3) Rhinovirus infection: She has been sick with URI symptoms since 01/11/2025. Looking at her chest x- ray from admission there is moderate peribronchial thickening and patchy opacities suggestive of possible pneumonitis. She has prominent esther and pulmonary vascular congestion. This patient had some wheezing on exam on presentation to the emergency department. Her lungs are clear to auscultation on my exam on hospital day 2 and 3 I am giving her Decadron 6 mg daily, which I stopped on discharge. (4) Pneumonia: Community-acquired pneumonia is quite possible looking at her chest x-ray, and her leukocytosis of 16. Leukocytosis has improved then increased again, likely due to steroids as clinically she was otherwise improving. She completed 3 days of Azithromycin and 3 days of Rocephin. dc'ed to home to complete 2 additional days of Augmentin. (5) Major depressive disorder, recurrent, moderate: Her depression has been treated previously with fluoxetine 40 mg daily as well as BuSpar 10 mg 3 times daily. She has been in cognitive behavioral therapy previously but is not currently engaged with a therapist. She does use community support groups. I would recommend that she continue to seek mental health assistance. She has been given resources for CBT, and I would recommend consultation with our machine pecan picker service for med management. She continues to focus on positive aspects of her life and things that she has to look forward to. I do not sense any propensity for self-harm or suicidal ideation (6) Type 2 diabetes mellitus: At home she is on metformin 1000 mg twice daily and Trulicity 4.5 mg subcutaneously weekly. Hemoglobin A1c is 7%. Her blood glucose has been elevated after admission secondary to steroids. She is on sliding scale insulin, but will dc to home back on her baseline meds. ALLERGIES Allergies Allergy/AdvReac Type Severity Reaction Status Date / Time nortriptyline Allergy Severe sensitivity Verified 01/21/25 08:00 mirtazapine Allergy Intermediate Sensitivity Verified 01/21/25 08:00 trazodone Allergy Mild Sensitivity Verified 01/21/25 08:00 venlafaxine HCl * (From Allergy Mild Sensitivity Verified 01/21/25 08:00 Effexor) codeine Allergy Nausea Verified 01/21/25 08:00 PET DANDER, DOG HAIR Allergy Severe Unknown Uncoded 01/21/25 08:00 MEDICATIONS Ambulatory Orders Medication Instructions Recorded Confirmed fluoxetine 40 mg capsule (Prozac) 40 mg PO DAILY 01/1201/22/25 pen needle, diabetic 31 gauge x 05/30/24 09/14/24 1/4" pen needle, diabetic 31 gauge x 05/30/24 09/14/24 5/16" (BD Ultra-Fine Short Pen Needle) amlodipine 2.5 mg tablet (Norvasc) 2.5 mg PO DAILY for blood pressure 06/30/24 01/22/25 #90 tabs dulaglutide 4.5 mg/0.5 mL 4.5 mg (0.5 mL) subcut QWEEK #6 mL 06/30/24 01/22/25 subcutaneous pen injector (Trulicity) losartan 25 mg tablet 50 mg (2 x 25 mg) PO DAILY # 180 11/24/24 01/22/25 tabs metformin 500 mg tablet 1,000 mg (2 x 500 mg) PO BID #360 01/16/25 01/22/25 tabs Augmentin 875 mg-potassium 1 tab PO BID #4 tabs clavulanate 125 mg tablet buspirone 5 mg tablet 10 mg (2 x 5 mg) PO TID #90 tabs 01/23/25 fluoxetine 40 mg capsule 40 mg PO DAILY #90 caps 07/14 lorazepam 1 mg tablet 1 mg PO Q4H PRN Anxiety #14 tabs 01/23/25 PHYSICAL EXAM AT DISCHARGE Vital Signs: Vital Signs x48h Temp Pulse Pulse Resp BP Pulse Ox 01/23/25 16:25 36.5 C 69 16 135/70 H 97 01/23/25 15:25 90 LABS 01/23/25 04:54 01/23/25 04:54 FOLLOW UP Follow Up: PCP 7 to 10 days Referrals to cardiology and behavioral health. TIME SPENT Time Spent in Discharge (Minutes): 50 Discharge Plan Discharge Patient Disposition: Home, Self Care Condition: Stable Prescriptions: New amoxicillin-pot clavulanate 875-125 mg tablet 1 tab PO BID Qty: 4 0RF Rx Instructions: take with food, start on 01/24 buspirone 5 mg Tablet 10 mg PO TID Qty: 90 0RF lorazepam 1 mg Tablet 1 mg PO Q4H PRN (Reason: Anxiety) Qty: 14 0RF fluoxetine 40 mg capsule 40 mg PO DAILY Qty: 90 2RF Continued fluoxetine [Prozac] 40 mg capsule 40 mg PO DAILY (DME) pen needle, diabetic [BD Ultra-Fine Short Pen Needle] 31 gauge x 5/16" needle See Rx Instructions .Route Rx Instructions: once a day (DME) pen needle, diabetic 31 gauge x 1/4" needle See Rx Instructions .Route Rx Instructions: As directed losartan 25 mg tablet 50 mg PO DAILY Qty: 180 3RF Rx Instructions: Take 2 tablets by mouth once a day metformin 500 mg tablet 1,000 mg PO BID Qty: 360 1RF amlodipine [Norvasc] 2.5 mg tablet 2.5 mg PO DAILY Qty: 90 3RF Trulicity 4.5 mg/0.5 mL pen injector 4.5 mg subcut QWEEK Qty: 6 3RF Activity Restrictions: No Restrictions Diet: Diabetic Health Concerns: Medications and Follow-Up * Augmentin is an antibiotics. do not start until tomorrow, 4 doses (2x daily), take with food. * restart all of your previous home meds, even those you were out of. * Bring a list of your current medications and any recent changes to all follow- up visits. Diabetes Management * Monitor your blood sugar as instructed. Typical home targets are 184636 mg/dL, but your provider may adjust these based on your health status. * Know the signs of high (hyperglycemia) and low (hypoglycemia) blood sugar. If you feel shaky, sweaty, confused, or very tired, check your blood sugar and follow your providers instructions for treatment. * Eat regular, balanced meals. If you need help with meal planning, ask for a referral to a dietitian or accounts supervisor. * Have all necessary supplies (glucose meter, test strips, insulin, etc.) before leaving the hospital. Pneumonia Recovery * Take all antibiotics and other medications as prescribed. Do not stop early, even if you feel better. * Rest and gradually increase activity as tolerated. Watch for new or worsening symptoms such as fever, shortness of breath, chest pain, or confusion, and contact your provider if these occur. * A follow-up chest X-ray may be needed only if symptoms persist or if you are at risk for lung cancer. You do not need a followup chest X ray. Takotsubo Cardiomyopathy Care * Take heart medications as directed. Avoid sudden emotional or physical stress when possible, as this condition is often triggered by stress. * Monitor for symptoms such as chest pain, palpitations, or swelling in your legs. Report these to your provider promptly. * Limit salt intake and follow any fluid restrictions if advised. * You need to see a radon inspector in followup and have the ultrasound on your heart repeated. Please have your PCP refer you for cardiology recheck. Managing Anxiety * Anxiety is common after serious illness. Non-drug approaches are recommended first, such as relaxation exercises, mindfulness, and talking with supportive friends or family. * Continue your current medication regimen. * Seek counseling, this is important. * I would recommend evaluation with a machine pecan picker. She (all of the ones [place]) can look at your medications and help manage these. General Self-Care * Get plenty of rest and stay hydrated. * Avoid smoking and limit alcohol. * Social activities are part of self care! * Spending time with your pets is also part of self care! * Keep all follow-up appointments and communicate any concerns to your healthcare team. When to Seek Help * Call your provider or seek emergency care if you experience severe shortness of breath, chest pain, confusion, very high or very low blood sugar, or any new or worsening symptoms. Support and Resources * Ask your provider for information on local support groups, counseling services, or educational resources for diabetes and anxiety management. Print Language: Uzbek Patient Instructions: Takotsubo Cardiomyopathy Follow-up Care: Ellie Damico PA-C [Primary Care Provider, Family Practice] Vitals documented within 30 minutes of discharge?: Yes
[2025-01-23 16:26] VITALS: BP 135/70; TEMP 97.7; O2SAT 97
== END 2025-01-23 16:30 | disposition home or self-care (01) | DRG 189 ==
LOC: MS2 07:51 → ED 07:51 → MS2 11:47
PROVIDERS: ADMIT Physician Assistant Medical; ATTEND Physician Assistant Medical
DX: I51.81 Takotsubo syndrome; Z79.84 Long term (current) use of oral hypoglycemic drugs; I50.9 Heart failure, unspecified; E11.9 Type 2 diabetes mellitus without complications; J18.9 Pneumonia, unspecified organism; Z79.85 Long-term (current) use of injectable non-insulin antidiabetic drugs; J96.01 Acute respiratory failure with hypoxia; F33.1 Major depressive disorder, recurrent, moderate; B34.8 Other viral infections of unspecified site; Z90.710 Acquired absence of both cervix and uterus; Z66 Do not resuscitate; Z79.899 Other long term (current) drug therapy; Z87.891 Personal history of nicotine dependence; R94.31 Abnormal electrocardiogram [ECG] [EKG]; E86.0 Dehydration; I45.10 Unspecified right bundle-branch block